=== PATIENT | female | born 1950 | race Hispanic/Latino ===

== ENCOUNTER → 2017-12-08 | Outpatient (CLI) | payer OTHER, MEDICARE ==
[~2017-12-08] MED LIST: ASPI-555 PO; ATOR20TA65 PO; LISI-617 PO; METF500T6 PO; MILK THISTLE; SPIR50TA3 PO
== END | disposition home or self-care (01) ==
LOC: RAH 10:19
PROVIDERS: ATTEND Internal Medicine Gastroenterology
DX: K70.31 Alcoholic cirrhosis of liver with ascites (principal); K80.20 Calculus of gallbladder without cholecystitis without obstruction; R16.1 Splenomegaly, not elsewhere classified
CPT/HCPCS: 76700

== ENCOUNTER → 2019-03-24 | Outpatient (CLI) | payer MEDICARE, OTHER ==
[~2019-03-24] VITALS: Ht 121.9 cm; Wt 56.2 kg
[~2019-03-24] MED LIST changes: +METF-444 PO; -METF500T6 PO; +REGADENOSON 0.4 MG/5 ML PF SYG IVP SCH; -SPIR50TA3 PO; +SPIR50TA5 PO
== END | disposition home or self-care (01) ==
LOC: SHCH 08:45
PROVIDERS: ATTEND Internal Medicine Cardiovascular Disease
DX: R06.00 Dyspnea, unspecified (principal)
CPT/HCPCS: 78452; 93017; 96374; A9500 ×2; J2785

== ENCOUNTER 2019-04-28 16:23 | Observation (INO) | payer MEDICARE, OTHER ==
[~2019-04-28] VITALS: Ht 152.4 cm; Wt 59.8 kg
[~2019-04-28 16:23] MED LIST changes: -APIX5TAB PO; -FAMO20TA8 PO; -FERR325T22 PO; -FURO20TA4 PO; -METF-446 PO; -MIRT15TA6 PO
[2019-04-28 17:22] LABS: BASOPHILS % (AUTO) 0.6 % (0.0-5.0); EOSINOPHILS % (AUTO) 0.1 % (0.0-8.0); HEMATOCRIT 35.7 % (36-48); LYMPHOCYTES % (AUTO) 23.2 % (21.0-51.0); MEAN CORPUSCULAR HEMOGLOBIN 32.1 pg (27.0-33.0); MEAN CORPUSCULAR VOLUME 97.4 fL (79-99); MONOCYTES % (AUTO) 5.6 % (3.0-13.0); NEUTROPHILS % (AUTO) 70.5 % (40.0-77.0); NUCLEATED RED BLOOD CELLS 0.1 % (0.0-0.19); PLATELET COUNT (AUTO) 158 K/uL (130-400); RED BLOOD CELL COUNT(AUTO) 3.66 MIL/uL (4.00-5.50); RED CELL DISTRIBUTION WIDTH 21.9 % (11.0-15.5); WHITE BLOOD COUNT (AUTO) 6.7 K/uL (4.8-10.8)
[2019-04-28 17:42] LABS: INR 1.49 (0.85-1.15); PARTIAL THROMBOPLASTIN TIME 36.2 SEC (26.3-35.5); PROTHROMBIN TIME 15.5 SEC (9.6-11.6)
[2019-04-28 18:08] LABS: CREATININE 0.9 mg/dL (0.5-1.5); POTASSIUM 4.3 mmol/L (3.5-5.1)
[2019-04-28 18:13] LABS: BILIRUBIN,TOTAL 2.6 mg/dL (0.2-1.0); TOTAL PROTEIN, SERUM 7.2 g/dL (6.0-8.3)
[2019-04-28] MEDS ORDERED: LABETALOL HCL 5 MG/ML 20ML VIAL IV PRN (18:45)
[2019-04-28] MEDS ORDERED: HYDRALAZINE HCL 20 MG/ML VIAL IV PRN (18:45)
[2019-04-28] MEDS ORDERED: ONDANSETRON HCL 4 MG/2 ML VIAL IVP PRN (18:45)
[2019-04-28 19:56] VITALS: BP 150/88
--- NOTE | 2019-04-28 20:00 | NUR ---
ADDENDUM TO SKIN ASSESSMENT BRUISING TO LEFT FOREHEAD AREA,NO OPEN WOUND ,NO SWELLING , PER PT SUSTAINED FROM BOTTLE FALLING TO HER FOREHEAD WHILE TRYING TO TAKE BOTTLE OUT OF CABINET. BRUISED AREA RIGHT UPPER ARM ,OCCUPYING ANTERIOR LOWER 1/2 OF UPPER ARM WITH NO SWELLING AND NO OPEN WOUND. PER PT , HAPPENED POST BLOOD DRAW ,A WEEK AGO AT THE OTHER HOSPITAL. Addendum: 04/29/19 at 0034 by ANUJ BROWER RN RN Amended: Links added.
[2019-04-28] MEDS: IPRATROPIUM/ALBUTEROL SULFATE 3 ML SOLUTION IH PRN (21:47)
[2019-04-28 23:10] VITALS: BP 105/65
[2019-04-28] MEDS ORDERED: FERR325T22 PO ×2 (23:12)
[2019-04-28] MEDS ORDERED: FURO20TA4 PO ×2 (23:12)
[2019-04-28] MEDS ORDERED: METF-446 PO ×2 (23:12)
[2019-04-28] MEDS ORDERED: FAMO20TA8 PO ×2 (23:12)
[2019-04-28] MEDS ORDERED: MIRT15TA6 PO ×2 (23:12)
[2019-04-28] MEDS ORDERED: APIX5TAB PO ×2 (23:12)
[2019-04-29] VITALS (12 sets, daily range): BP systolic 92–152; BP diastolic 54–87
[2019-04-29] MEDS: IPRATROPIUM/ALBUTEROL SULFATE 3 ML SOLUTION IH PRN ×2 (06:21→18:38)
--- NOTE | 2019-04-29 11:51 | NUR ---
PT PENDING PARACENTESIS CONSENT OBTAINED, THIS SILVER RECOVERY OPERATOR CALL TO CHECKING WHEN PT WILL BE GOING DOWN FOR PARACENTESIS, WAS GIVEN DR. TAFOYA'S #[id number], DR. TAFOYA SAY TO CALL DR. COLLEEN BARNES #[id number], DR. BARNES TO CALL LOTTIE TAFOYA CALLED BACK AND SAID TO CALL RADIOLOGY NURSE TO ARRANGE AND COMMUNICATE BACK TO HIM, TECHNICAL DATA ANALYST NOTIFIED.
--- NOTE | 2019-04-29 13:10 | NUR ---
PT UPDATE PT IS GONE FOR PARACENTESIS, NURSING WILL CONTINUE TO FOLLOW UP.
--- NOTE | 2019-04-29 14:00 | NUR ---
U/S GD PARACENTESIS PROCEDURE PERFORMED BY DR TAFOYA. PUNCTURE SITE RIGHT UPPER QUADRANT OF ABDOMEN AND PATIENT TOLERATED PROCEDURE WELL. TOTAL REMOVED 4.2 LITERS OF CLOUDY YELLOW FLUID. ALBUMIN 25% 50 GRAMS IV ORDERED SPECIMEN SENT TO LAB. END OF PROCEDURE AT 1430. CATHETER REMOVED AND DRESSING APPLIED. NO BLEEDING NOTED. . REPORT GIVEN TO PHAM WINN RN AND PATIENT TRANSPORTED TO [facility] VIA W/C, STABLE, AAO X3 WITH NO C/O PAIN.
[2019-04-29] MEDS ORDERED: ALBUMIN (HUMAN) 25% 100 ML IV ONE (14:30)
[2019-04-29 16:16] LABS: ALBUMIN,BODY FLUID < 0.6 g/dL
[2019-04-29 16:28] LABS: APPEARANCE BODY FLUID CLOUDY (CLEAR); COLOR,BODY FLUID BROWN (LT YELLOW); SPECIMENTYPE,BODY FLUID ASCITES FLUID; TOTAL VOLUME,BODY FLUID 4200 mL
--- NOTE | 2019-04-29 16:44 | NUR ---
INITIAL: Met with pt/family this afternoon to discuss dcp. Prior to admission pt was living w spouse and son Abdon. Pt is independent w ambulation and ADLs. She owns a rollator if needed. Per pt she feels safe and comfortable to return home at [place]. Will continue to follow and wait for Md recommendations. Addendum: 04/29/19 at 1646 by KATHE STEARNS CM Amended: Links added.
[2019-04-29 17:26] LABS: BODY FLUID RBC 146 /cu. mm.; BODY FLUID WBC 36 /cu. mm.
[2019-04-29 17:30] LABS: BF LYMPHOCYTE 31 %; BF MESOTHELIAL 1 %; BF MONOCYTE 37 %; BF OTHER CELLS 1
[2019-04-29] MEDS ORDERED: MIRTAZAPINE 15 MG TABLET PO SCH (21:00)
[2019-04-29] MEDS ORDERED: FUROSEMIDE 10 MG/1 ML SOLN UDC 10 MG/ML UDCUP PO SCH (21:00)
[2019-04-29] MEDS: FAMOTIDINE 20MG TAB 20 MG TAB PO SCH (21:22)
[2019-04-29] MEDS: FUROSEMIDE 20 MG TABLET PO SCH (21:23)
[2019-04-30 03:15] VITALS: BP 96/43
[2019-04-30] MEDS: IPRATROPIUM/ALBUTEROL SULFATE 3 ML SOLUTION IH PRN (06:20)
[2019-04-30 06:30] LABS: MEAN CORPUSCULAR HEMOGLOBIN 32.4 pg (27.0-33.0); MEAN CORPUSCULAR HGB CONC 33.3 g/dL (32.0-36.0); MEAN CORPUSCULAR VOLUME 97.3 fL (79-99); NUCLEATED RED BLOOD CELLS 0.3 % (0.0-0.19); PLATELET COUNT (AUTO) 88 K/uL (130-400); RED BLOOD CELL COUNT(AUTO) 2.67 MIL/uL (4.00-5.50); RED CELL DISTRIBUTION WIDTH 22.2 % (11.0-15.5); WHITE BLOOD COUNT (AUTO) 2.6 K/uL (4.8-10.8)
[2019-04-30 06:39] LABS: CREATININE 0.6 mg/dL (0.5-1.5); POTASSIUM 3.3 mmol/L (3.5-5.1)
[2019-04-30 08:00] VITALS: BP 100/56
[2019-04-30 08:59] LABS: BASOPHILS % (MANUAL) 2 % (0-2); LYMPHOCYTES % (MANUAL) 31 % (22-44); MAN.DIFF COMMENT-IMPRESSION MANUAL DIFFERENTIAL; MONOCYTES % (MANUAL) 9 % (2-9); PLATELET MORPHOLOGY COMMENT DECREASED; SEGMENTED NEUTROPHILS % 58 % (40-70)
[2019-04-30] MEDS ORDERED: LACTULOSE 20 GM/30 ML UDCUP PO SCH (09:00)
[2019-04-30] MEDS ORDERED: FERROUS SULFATE 325 MG TABLET.DR PO SCH (09:00)
[2019-04-30] MEDS ORDERED: LISINOPRIL 5 MG TABLET PO SCH (09:00)
[2019-04-30] MEDS ORDERED: SPIRONOLACTONE 25 MG TAB PO SCH (09:00)
[2019-04-30] MEDS: FUROSEMIDE 20 MG TABLET PO SCH (09:19)
[2019-04-30] MEDS: FAMOTIDINE 20MG TAB 20 MG TAB PO SCH (09:19)
[2019-04-30 12:00] VITALS: BP 116/73
--- NOTE | 2019-04-30 13:23 | NUR ---
Pt D/C Update 1. PT DISCHARGE TO HOME 2. PT TO CONTINUE WITH CURRENT HOME MEDS DISCUSSED BY THE DOCTOR 3. PT TO FOLLOW DISCHARGE APPOINTMENT WITH PRIMARY CARE DOCTOR 4. PT TO LIMIT FLUID INTAKE TO 1.5L PER DAY AND FOLLOW DIETARY RECOMMENDATION 5. PT TO CONSULT PRIMARY CARE PROVIDER, COME TO THE EMERGENCY ROOM OR CALL 911 WHEN PT FEELS SHORT OF BREATH. 6. PT IV TAKEN OUT COMPLETELY, NO COMPLICATION NOTED.
[2019-04-30] MEDS ORDERED: APIXABAN 5 MG TABLET PO SCH (21:00)
== END 2019-04-30 13:49 | disposition home or self-care (01) ==
LOC: EDH 16:23 → EDHIP 18:29 → 3AH 19:41
PROVIDERS: ADMIT Internal Medicine Critical Care Medicine; ATTEND Internal Medicine Critical Care Medicine
DX: K70.31 Alcoholic cirrhosis of liver with ascites (principal); E11.22 Type 2 diabetes mellitus with diabetic chronic kidney disease; I13.0 Hypertensive heart and chronic kidney disease with heart failure and stage 1 through stage 4 chronic kidney disease, or unspecified chronic kidney disease; I50.9 Heart failure, unspecified; N18.3 Chronic kidney disease, stage 3 (moderate); I82.402 Acute embolism and thrombosis of unspecified deep veins of left lower extremity; K76.6 Portal hypertension; Z79.01 Long term (current) use of anticoagulants; Z79.899 Other long term (current) drug therapy
CPT/HCPCS: 36415 ×2; 49083; 71045; 80048; 80053; 82042; 82140; 82948 ×6; 83880; 84484; 85025 ×2; 85610; 85730; 87071; 87205; 88108; 88305; 89051; 93005; 94640 ×4; 94664; 96365; 99284; A4215; G0378 ×43; P9046

== ENCOUNTER → 2019-04-28 | Outpatient (CLI) | payer MEDICARE, OTHER ==
[~2019-04-28] MED LIST changes: +APIX5TAB PO; +FAMO20TA8 PO; +FERR325T22 PO; +FURO20TA4 PO; +METF-446 PO; +MIRT15TA6 PO; -REGADENOSON 0.4 MG/5 ML PF SYG IVP SCH
== END | disposition home or self-care (01) ==
LOC: SHCH 10:52
PROVIDERS: ATTEND Internal Medicine Cardiovascular Disease
DX: I08.0 Rheumatic disorders of both mitral and aortic valves (principal); I10 Essential (primary) hypertension
CPT/HCPCS: 93306

== ENCOUNTER 2019-05-05 12:55 | Emergency (ER) | payer OTHER ==
[~2019-05-05 12:55] MED LIST changes: +APIX5TAB PO; -ASPI-555 PO; -ATOR20TA65 PO; +FAMO20TA8 PO; +FERR325T22 PO; +FURO20TA4 PO; -METF-444 PO; +METF-446 PO; -MILK THISTLE; +MIRT15TA6 PO; -SPIR50TA5 PO
[2019-05-05 13:55] LABS: BASOPHILS % (AUTO) 0.8 % (0.0-5.0); EOSINOPHILS % (AUTO) 1.4 % (0.0-8.0); HEMATOCRIT 27.9 % (36-48); LYMPHOCYTES % (AUTO) 29.1 % (21.0-51.0); MEAN CORPUSCULAR HEMOGLOBIN 32.3 pg (27.0-33.0); MEAN CORPUSCULAR HGB CONC 33.4 g/dL (32.0-36.0); MEAN CORPUSCULAR VOLUME 96.7 fL (79-99); MONOCYTES % (AUTO) 10.4 % (3.0-13.0); NEUTROPHILS % (AUTO) 58.3 % (40.0-77.0); NUCLEATED RED BLOOD CELLS 0.1 % (0.0-0.19); PLATELET COUNT (AUTO) 89 K/uL (130-400); RED BLOOD CELL COUNT(AUTO) 2.89 MIL/uL (4.00-5.50); RED CELL DISTRIBUTION WIDTH 21.7 % (11.0-15.5); WHITE BLOOD COUNT (AUTO) 3.4 K/uL (4.8-10.8)
[2019-05-05 14:08] LABS: INR 1.51 (0.85-1.15); PARTIAL THROMBOPLASTIN TIME 36.5 SEC (26.3-35.5); PROTHROMBIN TIME 15.7 SEC (9.6-11.6)
[2019-05-05 14:13] LABS: CREATININE 0.6 mg/dL (0.5-1.5); POTASSIUM 3.6 mmol/L (3.5-5.1)
[2019-05-05 14:18] LABS: ALBUMIN 1.6 g/dL (3.5-5.0); BILIRUBIN,TOTAL 1.9 mg/dL (0.2-1.0); TOTAL PROTEIN, SERUM 5.5 g/dL (6.0-8.3)
[2019-05-05] MEDS ORDERED: ALBUMIN (HUMAN) 25% 100 ML IV ONE (15:10)
[2019-05-05] MEDS ORDERED: FUROSEMIDE 10 MG/ML 4ML VIAL ONE (15:10)
[2019-05-11] MEDS ORDERED: FURO20TA4 PO (07:11)
[2019-05-11] MEDS ORDERED: SPIR50TA5 PO (07:11)
== END 2019-05-05 16:30 | disposition home or self-care (01) ==
LOC: EDH 12:55
DX: K74.60 Unspecified cirrhosis of liver (principal); R18.8 Other ascites; I11.0 Hypertensive heart disease with heart failure; I50.9 Heart failure, unspecified; E11.9 Type 2 diabetes mellitus without complications
CPT/HCPCS: 36415; 71045; 80053; 82550; 83880; 84484; 85025; 85610; 85730; 93005; 96365; 96375; 99285; J1940; P9046

== ENCOUNTER 2019-05-11 03:45 | Observation (INO) | payer OTHER | END 2019-05-12 12:56 | disposition home or self-care (01) | LOC: EDH 03:45 → EDHIP 04:41 → 2AH 05:51 ==

== ENCOUNTER 2019-05-15 03:30 | Observation (INO) | payer OTHER ==
[2019-05-15] VITALS (10 sets, daily range): BP systolic 90–128; BP diastolic 55–74
[~2019-05-15] VITALS: Ht 147.3 cm; Wt 64.1 kg
[~2019-05-15 03:30] MED LIST changes: -METF-446 PO; +SPIR50TA5 PO
[2019-05-15 04:08] LABS: BASOPHILS % (AUTO) 1.4 % (0.0-5.0); EOSINOPHILS % (AUTO) 6.4 % (0.0-8.0); HEMATOCRIT 28.3 % (36-48); LYMPHOCYTES % (AUTO) 32.6 % (21.0-51.0); MEAN CORPUSCULAR HEMOGLOBIN 32.8 pg (27.0-33.0); MEAN CORPUSCULAR HGB CONC 33.2 g/dL (32.0-36.0); MEAN CORPUSCULAR VOLUME 98.7 fL (79-99); MONOCYTES % (AUTO) 10.1 % (3.0-13.0); NEUTROPHILS % (AUTO) 49.5 % (40.0-77.0); NUCLEATED RED BLOOD CELLS 0.1 % (0.0-0.19); PLATELET COUNT (AUTO) 125 K/uL (130-400); RED BLOOD CELL COUNT(AUTO) 2.87 MIL/uL (4.00-5.50); RED CELL DISTRIBUTION WIDTH 22.3 % (11.0-15.5); WHITE BLOOD COUNT (AUTO) 4.1 K/uL (4.8-10.8)
[2019-05-15 04:18] LABS: CREATININE 0.5 mg/dL (0.5-1.5); POTASSIUM 4.2 mmol/L (3.5-5.1)
[2019-05-15 04:20] LABS: INR 1.35 (0.85-1.15); PARTIAL THROMBOPLASTIN TIME 32.1 SEC (26.3-35.5); PROTHROMBIN TIME 14.1 SEC (9.6-11.6)
[2019-05-15] MEDS ORDERED: METHYLPREDNISOLONE SOD SUCC 40MG/ML 1ML ONE (04:22)
[2019-05-15 04:27] LABS: ALBUMIN 1.8 g/dL (3.5-5.0); BILIRUBIN,TOTAL 1.5 mg/dL (0.2-1.0); TOTAL PROTEIN, SERUM 6.1 g/dL (6.0-8.3)
[2019-05-15] MEDS ORDERED: IPRATROPIUM/ALBUTEROL SULFATE 3 ML SOLUTION IH ONE (04:33)
[2019-05-15 04:36] LABS: B-TYPE NATRIURETIC PEPTIDE 76 pg/mL (0-100)
[2019-05-15] MEDS ORDERED: MORPHINE SULFATE 2 MG/ML 1ML SYG IVP PRN (06:30)
[2019-05-15] MEDS ORDERED: ACETAMINOPHEN 325 MG TAB PO PRN (06:30)
[2019-05-15] MEDS: INSULIN R PO SS1 SQ SCH ×4 (07:30→21:00)
--- NOTE | 2019-05-15 08:35 | NUR ---
U/S GD PARACENTESIS PROCEDURE PERFORMED BY DR CABALLERO. PUNCTURE SITE RIGHT UPPER QUADRANT OF ABDOMEN. PATIENT TOLERATED PROCEDURE WELL. TOTAL REMOVED 3.8 LITERS OF CLOUDY YELLOW ASCITES FLUID. END OF PROCEDURE AT 0855. CATHETER REMOVED AND DRESSING APPLIED. NO BLEEDING NOTED. REPORT CALLED TO SVEN JOLLEY. PATIENT TRANSPORTED BACK TO ROOM 328 VIA W/C, AT 0915, STABLE, AAO X3 WITH NO C/O PAIN.
[2019-05-15] MEDS ORDERED: ALBUMIN (HUMAN) 25% 100 ML IV SCH (09:00)
--- NOTE | 2019-05-15 09:30 | NUR ---
PT BACK FROM . I.R. PROCEDURE FOR A PARACENTESIS DRSG TO HER RT SIDE SM GAUZE WITH A 0- SANJEEV DRSG DRY AND CLEAN. PT . NOTED NO SOB . , DENIES ANY PAIN HOB . RESUME DIET. AND POSTOP V/S . WILL BE MONITOR ORD , FALL RISK REVIEW AND CALL LIGHT IN [facility].
[2019-05-15 09:41] LABS: SPECIMENTYPE,BODY FLUID ASCITES
[2019-05-15 09:42] LABS: APPEARANCE BODY FLUID CLEAR (CLEAR); COLOR,BODY FLUID YELLOW (LT YELLOW); TOTAL VOLUME,BODY FLUID 3800 mL
[2019-05-15 09:51] LABS: BODY FLUID RBC 938 /cu. mm.; BODY FLUID WBC 94 /cu. mm.
[2019-05-15 09:55] LABS: BF LYMPHOCYTE 30 %; BF MESOTHELIAL 17 %; BF MONOCYTE 8 %
[2019-05-15] MEDS ORDERED: POTASSIUM CHLORIDE 10% ELIXIR 20 MEQ/15 ML UDCUP PO PRN (10:15)
[2019-05-15] MEDS ORDERED: POTASSIUM CHLORIDE 20 MEQ ERTAB PO PRN (10:15)
[2019-05-15] MEDS ORDERED: LIDOCAINE HCL-MPF 1% 2ML VIAL IV PRN (10:15)
[2019-05-15] MEDS ORDERED: POTASSIUM CHLORIDE 20MEQ/100ML 100 ML IV PRN ×2 (10:15)
[2019-05-15] MEDS ORDERED: MAGNESIUM 2GM PREMIX 50ML 50 ML IV PRN (10:15)
[2019-05-15] MEDS: PANTOPRAZOLE SODIUM 40 MG TABLET.DR PO SCH (11:27)
[2019-05-15] MEDS: INSULIN HUMULIN R 100 UNIT/ML 3ML SQ SCH ×3 (11:30→21:00)
--- NOTE | 2019-05-15 12:25 | NUR ---
RESUME HOME MEDS PER Semaj DAWN
--- NOTE | 2019-05-15 14:02 | NUR ---
INITIAL AT BEDSIDE, NURSES THERE DOING INITIAL ASSESSMENT. PATIENT JUST DISCHARGED A FEW DAYS AGO, RETURNED FOR [place]CITES, NEEDING ANOTHER PARACENTESIS. PT STATES THAT HER MD WAS GOING TO SEND HER 'SOMEWHERE TO GET THE TAPS AND I'LL STAY THERE' ? SPOKE TO NEREYDA SUAREZ WHO STATED PLEASE HELP DR. PANTOJA, PMD TO SET SCHEDULED RECURRING PARA'S, CONTACT THEIR OFFICE CALL MADE TO BG MORRIS AND EMAILED ORDER FOR SCHEDULED PARACENTESIS
[2019-05-15] MEDS ORDERED: MIRTAZAPINE 15 MG TABLET PO SCH (21:00)
[2019-05-15] MEDS: SPIRONOLACTONE 25 MG TAB PO SCH (22:30)
[2019-05-15] MEDS: FAMOTIDINE 20MG TAB 20 MG TAB PO SCH (22:30)
[2019-05-15] MEDS: APIXABAN 5 MG TABLET PO SCH (22:31)
--- NOTE | 2019-05-15 23:21 | NUR ---
PATIENT REQUESTING OF BREATHING TREATMENT. SHE SAID SHE WAS HAVING SHORTNESS OF BREATHING UPON EXERTION. VITALS SIGNS TAKEN BP 120/70 RR 17 O2 SAT TO ROOM AIR 96% RI 85. HOOKED PT FOR NOW TO O2 AT 2 LPM VIA NASAL CANNULA. MAINTAINED ON GOVEA'S POSITION. NOTED LOWER EXTREMITIES ARE SWOLLEN, DIURETICS SCHEDULED GIVEN. INFORMED PATIENT AND JORGE L HAWKINS THAT I GAVE DIURETICS SCHEDULED SO SIDE EFFECT IS PT WILL URINATE. OFFERED PATIENT BEDPAN OR COMMODE JUST IN CASE SHE WILL HAVING A HARD TIME TO AMBULATE, PT ACKNOWLEDGED AND ACCEPTED IT. PAGED DYLAN MEHTA.PENDING FOR CALL BACK
--- NOTE | 2019-05-15 23:31 | NUR ---
CALL BACK DYLAN MEHTA CALL BACK INFORMED ABOUT PATIENT. SHE ORDERED CXR X 2 VIEWS IN THE MORNING. AND BREATHING TREATMENT DUONEB Q 6 HOURS. AND O2 AT 2 LPM VIA NC
[2019-05-16] VITALS: BP 116/78
[2019-05-16] MEDS: IPRATROPIUM/ALBUTEROL SULFATE 3 ML SOLUTION IH SCH ×3 (00:32→11:05)
[2019-05-16 04:00] VITALS: BP 99/55
[2019-05-16 05:03] LABS: CREATININE 0.6 mg/dL (0.5-1.5); MAGNESIUM 1.7 mg/dL (1.80-2.40); PHOSPHORUS 2.4 mg/dL (2.5-4.9); POTASSIUM 4.3 mmol/L (3.5-5.1)
[2019-05-16 07:00] VITALS: BP 104/64
[2019-05-16] MEDS: INSULIN R PO SS1 SQ SCH ×3 (07:30→16:30)
[2019-05-16] MEDS: INSULIN HUMULIN R 100 UNIT/ML 3ML SQ SCH ×3 (07:30→16:30)
[2019-05-16] MEDS ORDERED: FERROUS SULFATE 325 MG TABLET.DR PO SCH (09:00)
[2019-05-16] MEDS ORDERED: LISINOPRIL 5 MG TABLET PO SCH (09:00)
[2019-05-16] MEDS ORDERED: FUROSEMIDE 10 MG/ML 4ML VIAL IV SCH (09:00)
[2019-05-16] MEDS: PANTOPRAZOLE SODIUM 40 MG TABLET.DR PO SCH (09:50)
[2019-05-16] MEDS: SPIRONOLACTONE 25 MG TAB PO SCH (09:50)
[2019-05-16] MEDS: FAMOTIDINE 20MG TAB 20 MG TAB PO SCH (09:50)
[2019-05-16] MEDS: APIXABAN 5 MG TABLET PO SCH (09:51)
[2019-05-16 11:00] VITALS: BP 111/44
--- NOTE | 2019-05-16 15:03 | NUR ---
RD NOTIFICATION Primary Diagnosis: Ascites. Hx: CKD STG III, CHF, HTN, DM2, Liver Cirrhosis. BMI is 29.5; classified as overweight. Current diet: Regular, Na2gm, Fluid Restriction 1000mLs/d. PO intake 100%. LBM: 05/15. Meds: Duoneb, Remeron, Eliquis, Pepcid, Humulin R, Aldactone, Protonix. Labs: Phos 2.4, Mg 1.7, Ammonia 34, Bilirubin 1.5, Alk phosphatase 188, Alb 1.8, BG 149. Pt was previously admitted on 05/11 for volume overload. S/P paracentesis on 05/15. Pt has reoccurring ascites. Pt states she has good appetite and no difficulty chewing or swallowing. Skin: 2+ pitting edema, skin intact. Pts son states he has a hard time getting her to understand she needs to stay away from high sodium food and excessive fluid intake. Son says he will keep a close eye on pt intake. RD recommends to continue current diet. RD provided pt and pt son Low Sodium Nutrition Therapy and Fluid Restriction Nutrition Therapy. Son was eager to ask questions, RD answered and son verbalized understanding. RD provided diet handouts for pt and family to take home and use as reference. RD encouraged pt to reach out if he had any other questions or concerns. RD will continue to monitor and follow up as needed. Please notify RD if any other nutritional concerns arise, Thank you. Addendum: 05/16/19 at [address] Amended: Links added.
--- NOTE | 2019-05-16 15:05 | NUR ---
DIET EDUCATION PELON provided pt and pt son Low Sodium Nutrition Therapy and Fluid Restriction Nutrition Therapy. Son was eager to ask questions, RD answered and son verbalized understanding. PELON provided diet handouts for pt and family to take home and use as reference. PELON encouraged pt to reach out if he had any other questions or concerns. Addendum: 05/16/19 at [address] Amended: Links added.
--- NOTE | 2019-05-16 17:28 | NUR ---
DISCHARGE INSTRUCTIONS GIVEN. ALL QUESTIONS ANSWERED. IV DISCONTINUED WITH INNER CANNULA INTACT. INSTRUCTED PATIENT TO FOLLOW UP WITH PCP REGARDING CONTINUITIY OF CARE. SON IN ROOM WITH PATIENT. PATIENT WHEELED DOWNSTAIRS TO PRIVATE CAR. VOICES NO COMPLAINTS.
== END 2019-05-16 19:00 | disposition home or self-care (01) ==
LOC: EDH 03:30 → EDHIP 05:55 → 3DH 06:07 → 3BH 20:40
PROVIDERS: ADMIT Internal Medicine Pulmonary Disease; ATTEND Internal Medicine Pulmonary Disease
DX: R18.8 Other ascites (principal); I13.0 Hypertensive heart and chronic kidney disease with heart failure and stage 1 through stage 4 chronic kidney disease, or unspecified chronic kidney disease; I50.9 Heart failure, unspecified; N18.3 Chronic kidney disease, stage 3 (moderate); E11.22 Type 2 diabetes mellitus with diabetic chronic kidney disease; R06.02 Shortness of breath; I82.402 Acute embolism and thrombosis of unspecified deep veins of left lower extremity; K74.60 Unspecified cirrhosis of liver; J45.909 Unspecified asthma, uncomplicated; Z79.01 Long term (current) use of anticoagulants; Z86.718 Personal history of other venous thrombosis and embolism; Z79.899 Other long term (current) drug therapy
CPT/HCPCS: 36415 ×2; 49083; 71045; 71046; 80048; 80053; 82140 ×2; 82948 ×4; 83735; 83880; 84100; 84484; 85025; 85610; 85730; 87071; 87205; 89051; 93005; 93970; 94640 ×4; 94664; 96365; 96366; 96372; 96375; 96376; 99284; A4215; G0378 ×34; J1815; J1940; J2920; J3475; P9046

== ENCOUNTER 2019-05-29 01:18 | Inpatient (IN) | payer OTHER ==
[~2019-05-29] VITALS: Ht 152.4 cm; Wt 63.7 kg
[2019-05-29] MEDS ORDERED: IPRATROPIUM/ALBUTEROL SULFATE 3 ML SOLUTION IH ONE ×3 (01:53→04:24)
[2019-05-29 02:01] LABS: BASOPHILS % (AUTO) 0.9 % (0.0-5.0); EOSINOPHILS % (AUTO) 9.8 % (0.0-8.0); HEMATOCRIT 27.5 % (36-48); LYMPHOCYTES % (AUTO) 27.5 % (21.0-51.0); MEAN CORPUSCULAR HEMOGLOBIN 33.3 pg (27.0-33.0); MEAN CORPUSCULAR HGB CONC 33.7 g/dL (32.0-36.0); MONOCYTES % (AUTO) 7.4 % (3.0-13.0); NEUTROPHILS % (AUTO) 54.4 % (40.0-77.0); NUCLEATED RED BLOOD CELLS 0.1 % (0.0-0.19); PLATELET COUNT (AUTO) 116 K/uL (130-400); RED BLOOD CELL COUNT(AUTO) 2.77 MIL/uL (4.00-5.50); RED CELL DISTRIBUTION WIDTH 19.5 % (11.0-15.5); WHITE BLOOD COUNT (AUTO) 4.8 K/uL (4.8-10.8)
[2019-05-29 02:16] LABS: INR 1.34 (0.85-1.15); PARTIAL THROMBOPLASTIN TIME 31.5 SEC (26.3-35.5)
[2019-05-29 02:20] LABS: BILIRUBIN,TOTAL 1.4 mg/dL (0.2-1.0); CREATININE 0.7 mg/dL (0.5-1.5); POTASSIUM 3.2 mmol/L (3.5-5.1); TOTAL PROTEIN, SERUM 6.3 g/dL (6.0-8.3)
[2019-05-29] MEDS ORDERED: POTASSIUM BICARB/CIT AC 25 MEQ TABLET.EFF ONE (02:37)
[2019-05-29] MEDS ORDERED: METHYLPREDNISOLONE SOD SUCC 125MG/2ML VIAL ONE (02:37)
[2019-05-29] MEDS ORDERED: LEVOFLOXACIN 750 MG/D5W 150 ML 0 ML ONE (05:52)
[2019-05-29] MEDS ORDERED: LEVOFLOXACIN 500 MG/D5W 100 ML 100 ML ONE (05:53)
[2019-05-29] MEDS ORDERED: ACETAMINOPHEN 325 MG TAB PO PRN (08:00)
[2019-05-29] MEDS ORDERED: LACTULOSE 20 GM/30 ML UDCUP PO PRN (08:00)
[2019-05-29] MEDS ORDERED: ONDANSETRON HCL 4 MG/2 ML VIAL IVP PRN (08:00)
--- NOTE | 2019-05-29 08:50 | NUR ---
REPORT RECEIVED FROM SVEN SCHMITZ (ED). PATIENT ADMITTED UNDER [facility]S SERVICES FOR ASTHMA EXACERBATION. PATIENT WITH C/O SOB, PERSISTENT COUGH AND CONGESTION FOR 2 WEEKS. NO CONSULTS. PATIENT STABLE AT THIS TIME.
[2019-05-29 09:05] VITALS: BP 129/109
[2019-05-29] MEDS: IPRATROPIUM/ALBUTEROL SULFATE 3 ML SOLUTION IH SCH ×4 (09:55→21:57)
[2019-05-29 12:00] VITALS: BP 117/82
[2019-05-29] MEDS: DOXYCYCLINE 100MG+NS 250ML 250 ML IV SCH ×2 (12:52→23:24)
[2019-05-29] MEDS: GUAIFENESIN-CODEINE 5 ML SYRUP PO PRN ×2 (12:56→23:31)
[2019-05-29] MEDS: METHYLPREDNISOLONE SOD SUCC 40MG/ML 1ML IVP SCH ×3 (12:56→23:23)
[2019-05-29 13:16] LABS: INR 1.41 (0.85-1.15); PROTHROMBIN TIME 14.7 SEC (9.6-11.6)
[2019-05-29 16:00] VITALS: BP 111/71
--- NOTE | 2019-05-29 16:01 | NUR ---
U/S GD PARACENTESIS PROCEDURE PERFORMED BY DR Bernarda WINKLER. PUNCTURE SITE RIGHT UPPER QUADRANT OF ABDOMEN AND PATIENT TOLERATED PROCEDURE WELL. TOTAL REMOVED 2.5 LITERS OF CLOUDY YELLOW FLUID. END OF PROCEDURE AT 1430. CATHETER REMOVED AND DRESSING APPLIED. NO BLEEDING NOTED. . REPORT GIVEN TO Manuela TSAI LVN AND PATIENT TRANSPORTED TO [facility] VIA W/C, STABLE, AAO X3 WITH NO C/O PAIN.
[2019-05-29] MEDS: BUDESONIDE 0.5 MG/2 ML INH IH SCH (18:56)
[2019-05-29 20:00] VITALS: BP 118/66
[2019-05-29] MEDS: LACTULOSE 20 GM/30 ML UDCUP PO SCH (23:23)
[2019-05-30] VITALS: BP 96/52
[2019-05-30] MEDS: IPRATROPIUM/ALBUTEROL SULFATE 3 ML SOLUTION IH SCH ×5 (01:11→18:29)
[2019-05-30 04:00] VITALS: BP 104/61
[2019-05-30 04:58] LABS: HEMATOCRIT 24.6 % (36-48); MEAN CORPUSCULAR HEMOGLOBIN 33.1 pg (27.0-33.0); MEAN CORPUSCULAR HGB CONC 33.5 g/dL (32.0-36.0); MEAN CORPUSCULAR VOLUME 98.8 fL (79-99); PLATELET COUNT (AUTO) 96 K/uL (130-400); RED BLOOD CELL COUNT(AUTO) 2.49 MIL/uL (4.00-5.50); RED CELL DISTRIBUTION WIDTH 19.8 % (11.0-15.5); WHITE BLOOD COUNT (AUTO) 5.6 K/uL (4.8-10.8)
[2019-05-30 05:07] LABS: CREATININE 0.7 mg/dL (0.5-1.5); POTASSIUM 4.1 mmol/L (3.5-5.1)
[2019-05-30 05:11] LABS: ALBUMIN 1.6 g/dL (3.5-5.0); BILIRUBIN,TOTAL 0.9 mg/dL (0.2-1.0); TOTAL PROTEIN, SERUM 5.4 g/dL (6.0-8.3)
[2019-05-30 05:13] LABS: LYMPHOCYTES % (MANUAL) 12 % (22-44); MONOCYTES % (MANUAL) 4 % (2-9); SEGMENTED NEUTROPHILS % 84 % (40-70)
[2019-05-30 05:14] LABS: MAN.DIFF COMMENT-IMPRESSION MANUAL DIFFERENTIAL; PLATELET MORPHOLOGY COMMENT SLIGHTLY DECREASED
[2019-05-30 08:00] VITALS: BP 110/57
[2019-05-30] MEDS: LACTULOSE 20 GM/30 ML UDCUP PO SCH ×2 (09:15→22:23)
[2019-05-30] MEDS: GUAIFENESIN-CODEINE 5 ML SYRUP PO PRN ×3 (09:15→22:22)
[2019-05-30] MEDS: METHYLPREDNISOLONE SOD SUCC 40MG/ML 1ML IVP SCH (09:15)
[2019-05-30] MEDS: BUDESONIDE 0.5 MG/2 ML INH IH SCH ×2 (10:17→18:29)
[2019-05-30 11:52] VITALS: BP 110/69
[2019-05-30] MEDS ORDERED: FAMOTIDINE/PF 20 MG/2 ML VIAL IV SCH (12:00)
[2019-05-30] MEDS ORDERED: LORATADINE 10 MG TABLET PO SCH (12:00)
--- NOTE | 2019-05-30 13:00 | NUR ---
DYSPHAGIA EVAL COMPLETED. -S/S OF ASPIRATION. RECOMMEND MECHANICAL SOFT/CHOPPED, THIN LIQUIDS; PILLS WHOLE WITH LIQUIDS. Addendum: 05/31/19 at 0846 by RADHA LAUREN, [facility] Amended: Links added.
[2019-05-30 16:00] VITALS: BP 99/61
--- NOTE | 2019-05-30 16:05 | NUR ---
INITIAL MET W PT ALONE, ON COOL MIST MASK, PT LIVES W /TWO SONS, WHO WILL PORIVDE TRANSPORT; PT STATES HAS ROLLING WALKER, NO BCS/SHOWER CHAIR, NO STAIRS IN HOME, PROVIDER SERVICES 26 HRS WEEK, DCP IS HOME PT STATES HAS OXYGEN BUT NO NEBULIZER.. WILL FOLLOW Addendum: 05/30/19 at 1726 by ADELE BARNES RN CM Amended: Links added. Addendum: 05/31/19 at 1052 by ADELE BARNES RN CM CORRECTION PT HAS NEBULIZER, DOES NOT HAVE OXYGEN
[2019-05-30] MEDS ORDERED: LORATADINE 10 MG TABLET ONE (16:38)
[2019-05-30] MEDS: DOXYCYCLINE 100MG+NS 250ML 250 ML IV SCH (16:42)
[2019-05-30 20:00] VITALS: BP 118/67
[2019-05-30] MEDS: PREDNISONE 20 MG TABLET PO SCH (22:23)
[2019-05-30] MEDS: FAMOTIDINE 20MG TAB 20 MG TAB PO SCH (22:23)
[2019-05-30] MEDS: APIXABAN 5 MG TABLET PO SCH (22:23)
[2019-05-30] MEDS: FUROSEMIDE 20 MG TABLET PO SCH (22:23)
[2019-05-30] MEDS: SPIRONOLACTONE 25 MG TAB PO SCH (22:23)
[2019-05-30] MEDS: MIRTAZAPINE 15 MG TABLET PO SCH (22:23)
[2019-05-30] MEDS: PROPRANOLOL HCL 20 MG TAB PO SCH (22:28)
[2019-05-31] VITALS: BP 126/66
[2019-05-31] MEDS: DOXYCYCLINE 100MG+NS 250ML 250 ML IV SCH ×3 (00:29→23:14)
[2019-05-31 04:00] VITALS: BP 113/68
[2019-05-31] MEDS: BUDESONIDE 0.5 MG/2 ML INH IH SCH (05:04)
[2019-05-31] MEDS: GUAIFENESIN-CODEINE 5 ML SYRUP PO PRN (05:25)
[2019-05-31 05:46] LABS: CREATININE 0.7 mg/dL (0.5-1.5); POTASSIUM 4.1 mmol/L (3.5-5.1)
[2019-05-31 06:03] LABS: HEMATOCRIT 25.4 % (36-48); MEAN CORPUSCULAR HEMOGLOBIN 32.9 pg (27.0-33.0); MEAN CORPUSCULAR HGB CONC 33.2 g/dL (32.0-36.0); MEAN CORPUSCULAR VOLUME 98.9 fL (79-99); PLATELET COUNT (AUTO) 109 K/uL (130-400); RED BLOOD CELL COUNT(AUTO) 2.56 MIL/uL (4.00-5.50); RED CELL DISTRIBUTION WIDTH 19.9 % (11.0-15.5); WHITE BLOOD COUNT (AUTO) 7.9 K/uL (4.8-10.8)
[2019-05-31 07:00] VITALS: BP 130/70
[2019-05-31] MEDS: PROPRANOLOL HCL 20 MG TAB PO SCH ×2 (09:00→23:13)
[2019-05-31] MEDS: LACTULOSE 20 GM/30 ML UDCUP PO SCH ×2 (10:18→23:14)
[2019-05-31] MEDS: FAMOTIDINE 20MG TAB 20 MG TAB PO SCH (10:18)
[2019-05-31] MEDS: APIXABAN 5 MG TABLET PO SCH ×2 (10:18→23:14)
[2019-05-31] MEDS: FUROSEMIDE 20 MG TABLET PO SCH ×2 (10:19→23:13)
[2019-05-31] MEDS: FERROUS SULFATE 325 MG TABLET.DR PO SCH (10:19)
[2019-05-31] MEDS: LORATADINE 10 MG TABLET PO SCH (10:19)
[2019-05-31] MEDS: SPIRONOLACTONE 25 MG TAB PO SCH ×2 (10:19→23:14)
[2019-05-31] MEDS: PREDNISONE 20 MG TABLET PO SCH ×2 (10:19→23:23)
--- NOTE | 2019-05-31 10:30 | NUR ---
NOTE NOTIFIED DYLAN MEHTA WITH [facility] THAT WE CALLED DR WATKINS OFFICE FOR CONSULT REGARDING VOCAL CORD DYSFUNCTION BUT HE IS OUT OF TOWN FOR A WEEK WITH FAMILY EMERGENCY AND THERE IS NO OTHER ENT TO COME SEE HER. SHE SAID SHE CAN GO SEE HIM OUTPATIENT.
[2019-05-31 11:00] VITALS: BP 142/72
[2019-05-31] MEDS: IPRATROPIUM/ALBUTEROL SULFATE 3 ML SOLUTION IH PRN ×3 (11:05→23:26)
--- NOTE | 2019-05-31 11:15 | NUR ---
FOLLOW UP COMPLETED. Pt TOLERATING CURRENT DIET OF MECHANICAL SOFT/CHOPPED, THIN LIQUIDS WITH NO OVERT S/S OF ASPIRATION. Addendum: 05/31/19 at 1116 by RADHA LAUREN, SPT ST Amended: Links added.
--- NOTE | 2019-05-31 12:10 | NUR ---
NOTE PATIENT WAS OUT OF BED TO GO TO THE BATHROOM AND HER O2 SATURATION AFTER SHE CAME BACK FROM BATHROOM AND BEING WITHOUT O2 FOR THIS TIME IS 98% ON ROOM AIR. SHE CONTINUES WITH DRY COUGH SHE HAS BEEN HAVING FOR 2 MONTHS.
--- NOTE | 2019-05-31 15:10 | NUR ---
RD NOTIFICATION PRIMARY DIAGNOSIS: ASTHMA EXACERBATION. HX: CIRRHOSIS. BMI IS 28.9; CLASSIFIED OVERWEIGHT. CURRENT DIET: HEART HEALTHY, MECHANICAL SOFT/CHOPPED, 6 SMALL MEALS, THIN LIQUIDS. PO INTAKE 75%. PT HAS GOOD APPETITE. NO FOOD ALLERGIES PER PT. PT STATED SHE HAS A PERSISTENT COUGH AND CHEST PAIN. PT CONTINUES TO EXPERIENCE PAIN WHEN SWALLOWING FOOD. PUBLIC HOUSING INTERVIEWER PREVIOUSLY RECOMMENDED TEXTURE MODIFICATIONS ON DIET ORDER. MEDS: PULMICORT, ZOFRAN, LACTULOSE, PEPCID, LORATADINE, DELTASONE, ROBITUSSIN, DUONEB, ELIQUIS, LASIX, PRINIVIL, REMERON, FERROUS SULFATE, ALDACTONE, INDERAL. LABS: AMMONIA 57, ALB 1.6, BNP 104. PT IS POSITIVE FOR ASCITES, S/P PARACENTESIS. RD RECOMMENDS TO CONTINUE CURRENT DIET. MONITOR PO INTAKE AND CONTINUE TO MONITOR TOLERANCE TO DIET AND PAIN WHEN SWALLOWING FOOD. RD WILL CONTINUE TO MONITOR AND FOLLOW UP NEEDED. PLEASE NOTIFY RD IF ANY OTHER NUTRITIONAL CONCERNS ARISE. THANK YOU. Addendum: 05/31/19 at [address] Amended: Links added.
[2019-05-31 16:00] VITALS: BP 119/70
--- NOTE | 2019-05-31 16:30 | NUR ---
NOTE SPOKE TO DR MIN CASTRO OVER THE TELEPHONE AND SHE WILL TAKE THE CONSULT. SHE WILL COME SEE THE PATIENT TOMORROW AT 1400. WILL INFORM [address] DAVIS ABOUT IT AND ASK ABOUT PATIENT HAVING A PARACENTESIS SINCE SHE WAS SCHEDULED TO HAVE ONE TOMORROW OUTPATIENT.
[2019-05-31] MEDS: LISINOPRIL 5 MG TABLET PO SCH (17:27)
[2019-05-31] MEDS ORDERED: RACEPINEPHRINE HCL 2.25% 0.5 ML NEB SOLN NEB PRN (18:00)
[2019-05-31 20:06] VITALS: BP 119/62
[2019-05-31] MEDS: PHARMACY COMMUNICATION MISC SCH (20:15)
[2019-05-31] MEDS: MIRTAZAPINE 15 MG TABLET PO SCH (23:13)
[2019-05-31] MEDS: PANTOPRAZOLE SODIUM 40 MG TABLET.DR PO SCH (23:13)
[2019-06-01] MEDS: PHARMACY COMMUNICATION MISC SCH ×6 (00:15→20:15)
[2019-06-01 00:17] VITALS: BP 113/69
[2019-06-01 03:35] VITALS: BP 106/59
[2019-06-01 04:47] LABS: HEMATOCRIT 26.7 % (36-48); MEAN CORPUSCULAR HEMOGLOBIN 33.4 pg (27.0-33.0); MEAN CORPUSCULAR HGB CONC 33.7 g/dL (32.0-36.0); MEAN CORPUSCULAR VOLUME 99.2 fL (79-99); PLATELET COUNT (AUTO) 103 K/uL (130-400); RED BLOOD CELL COUNT(AUTO) 2.69 MIL/uL (4.00-5.50); RED CELL DISTRIBUTION WIDTH 19.4 % (11.0-15.5); WHITE BLOOD COUNT (AUTO) 6.6 K/uL (4.8-10.8)
[2019-06-01 05:16] LABS: CREATININE 0.8 mg/dL (0.5-1.5); MAGNESIUM 1.6 mg/dL (1.80-2.40); POTASSIUM 3.8 mmol/L (3.5-5.1); THYROID STIMULATING HORMONE 0.71 uIU/mL (0.36-3.74)
[2019-06-01] MEDS: IPRATROPIUM/ALBUTEROL SULFATE 3 ML SOLUTION IH PRN ×4 (05:20→23:15)
[2019-06-01 05:36] LABS: INR 1.53 (0.85-1.15); PARTIAL THROMBOPLASTIN TIME 31.1 SEC (26.3-35.5); PROTHROMBIN TIME 15.9 SEC (9.6-11.6)
[2019-06-01] MEDS ORDERED: ALBUMIN (HUMAN) 25% 100 ML IV SCH (06:00)
[2019-06-01 07:30] VITALS: BP 95/57
[2019-06-01] MEDS: LISINOPRIL 5 MG TABLET PO SCH (09:00)
[2019-06-01] MEDS: PROPRANOLOL HCL 20 MG TAB PO SCH ×2 (09:00→21:29)
[2019-06-01 11:00] VITALS: BP 103/54
--- NOTE | 2019-06-01 13:00 | NUR ---
U/S GD PARACENTESIS PROCEDURE PERFORMED BY DR Bernarda WINKLER. PUNCTURE SITE RIGHT UPPER QUADRANT OF ABDOMEN AND PATIENT TOLERATED PROCEDURE WELL. TOTAL REMOVED 2 LITERS OF CLOUDY YELLOW FLUID. END OF PROCEDURE AT 1225. CATHETER REMOVED AND DRESSING APPLIED. NO BLEEDING NOTED. . REPORT GIVEN TO Wicho WATSON RN AND PATIENT TRANSPORTED TO [facility] VIA W/C, STABLE, AAO X3 WITH NO C/O PAIN. ALBUMIN 25% 25 GRAMS IV GIVEN BEFORE PARACENTESIS.
[2019-06-01 16:00] VITALS: BP 119/62
[2019-06-01] MEDS: PREDNISONE 20 MG TABLET PO SCH ×2 (16:22→21:21)
[2019-06-01] MEDS: FUROSEMIDE 20 MG TABLET PO SCH ×2 (16:22→21:22)
[2019-06-01] MEDS: APIXABAN 5 MG TABLET PO SCH ×2 (16:23→21:22)
[2019-06-01] MEDS: LORATADINE 10 MG TABLET PO SCH (16:24)
[2019-06-01] MEDS: FERROUS SULFATE 325 MG TABLET.DR PO SCH (16:24)
[2019-06-01] MEDS: SPIRONOLACTONE 25 MG TAB PO SCH ×2 (16:24→21:21)
[2019-06-01] MEDS: LACTULOSE 20 GM/30 ML UDCUP PO SCH ×2 (16:24→21:22)
[2019-06-01] MEDS: PANTOPRAZOLE SODIUM 40 MG TABLET.DR PO SCH ×2 (16:24→21:21)
[2019-06-01] MEDS: DOXYCYCLINE 100MG+NS 250ML 250 ML IV SCH (16:26)
[2019-06-01] MEDS: GUAIFENESIN-CODEINE 5 ML SYRUP PO PRN (16:43)
[2019-06-01 19:00] VITALS: BP 114/71
[2019-06-01] MEDS: MIRTAZAPINE 15 MG TABLET PO SCH (21:21)
[2019-06-02] VITALS: BP 126/55
[2019-06-02] MEDS: PHARMACY COMMUNICATION MISC SCH ×5 (00:15→16:15)
[2019-06-02] MEDS: DOXYCYCLINE 100MG+NS 250ML 250 ML IV SCH ×2 (03:04→12:25)
[2019-06-02 04:00] VITALS: BP 100/60
[2019-06-02 05:01] LABS: BASOPHILS % (AUTO) 0.6 % (0.0-5.0); EOSINOPHILS % (AUTO) 0.2 % (0.0-8.0); HEMATOCRIT 26.1 % (36-48); LYMPHOCYTES % (AUTO) 24.6 % (21.0-51.0); MEAN CORPUSCULAR HEMOGLOBIN 33.2 pg (27.0-33.0); MEAN CORPUSCULAR HGB CONC 33.7 g/dL (32.0-36.0); MEAN CORPUSCULAR VOLUME 98.6 fL (79-99); MONOCYTES % (AUTO) 8.7 % (3.0-13.0); NEUTROPHILS % (AUTO) 65.9 % (40.0-77.0); PLATELET COUNT (AUTO) 98 K/uL (130-400); RED BLOOD CELL COUNT(AUTO) 2.65 MIL/uL (4.00-5.50); RED CELL DISTRIBUTION WIDTH 19.2 % (11.0-15.5); WHITE BLOOD COUNT (AUTO) 5.3 K/uL (4.8-10.8)
[2019-06-02 05:14] LABS: CREATININE 0.8 mg/dL (0.5-1.5); POTASSIUM 4.1 mmol/L (3.5-5.1)
[2019-06-02] MEDS: IPRATROPIUM/ALBUTEROL SULFATE 3 ML SOLUTION IH PRN ×2 (06:46→13:16)
[2019-06-02 07:00] VITALS: BP 98/53
[2019-06-02] MEDS: LACTULOSE 20 GM/30 ML UDCUP PO SCH (08:55)
[2019-06-02] MEDS: LISINOPRIL 5 MG TABLET PO SCH (08:56)
[2019-06-02] MEDS: LORATADINE 10 MG TABLET PO SCH (08:56)
[2019-06-02] MEDS: FUROSEMIDE 20 MG TABLET PO SCH (08:56)
[2019-06-02] MEDS: PREDNISONE 20 MG TABLET PO SCH (08:56)
[2019-06-02] MEDS: FERROUS SULFATE 325 MG TABLET.DR PO SCH (08:56)
[2019-06-02] MEDS: PANTOPRAZOLE SODIUM 40 MG TABLET.DR PO SCH (08:56)
[2019-06-02] MEDS: APIXABAN 5 MG TABLET PO SCH (08:57)
[2019-06-02] MEDS: SPIRONOLACTONE 25 MG TAB PO SCH (08:57)
[2019-06-02] MEDS: PROPRANOLOL HCL 20 MG TAB PO SCH (08:57)
[2019-06-02 11:00] VITALS: BP 98/61
[2019-06-02] MEDS ORDERED: ALBU8.5H8 IH (12:09)
[2019-06-02] MEDS ORDERED: DOXY100C2 PO (12:09)
[2019-06-02] MEDS ORDERED: PRED20TA3 PO (12:09)
[2019-06-02] MEDS ORDERED: GUAFACSF5L PO (12:47)
--- NOTE | 2019-06-02 13:47 | NUR ---
VOICE EVALUATION COMPLETED. ENT CONSULT COMPLETED AND RECOMMENDATIONS FOR SPEECH THERAPY IN PLACE. 1. SPORTS MEDIA PROVIDED DETAILED HOME PROGRAM PROVIDED IN [place] VIA HANDOUT. ALL EXERCISES DEMONSTRATED AND EXPLAINED TO Pt AND SON. Pt REQUIRED ASSISTANCE SECONDARY TO POOR COORDINATION. SON VERBALIZED UNDERSTANDING. 2. SKILLED SPEECH THERAPY RECOMMENDED IN AN OUTPATIENT SETTING 2-3XWEEK. 3. ENT FINDINGS AFTER LARYNGOSCOPY: LEFT ATROPHIED TRUE VOCAL FOLD, GOOD GLOTTIC CLOSURE. G-CODES VOICE: [id number] Addendum: 06/02/19 at 1351 by RADHA LAUREN, [facility] Amended: Links added.
[2019-06-02 16:00] VITALS: BP 98/43
--- NOTE | 2019-06-02 16:00 | NUR ---
GUILLE PLAN- OUT PT SPEECH THERAPY ADVISED THE PRIMARY RN EARLIER THIS AFTERNOON THAT PT WILL NEED CARLYLE HAVE AN APPOINTMENT WITH HER PRIMARY MD VAZ FOR WEDNESDAY TO GET REFERRED FOR OUT PATIENT SPEECH THERAPY Addendum: 06/02/19 at 1817 by ADELE BARNES RN CM Amended: Links added.
--- NOTE | 2019-06-02 19:50 | NUR ---
PATIENT DISCHARGE PATIENT DISCHARGED, IV DISCONTINUED, BLEEDING CONTROLLED, CATHLON INTACT, PATIENT TOLERATED WITHOUT INCIDENT.
[2019-06-06] MEDS ORDERED: SPIR100T5 PO (00:21)
== END 2019-06-02 19:56 | disposition home or self-care (01) | DRG 433 ==
LOC: EDH 01:18 → EDHIP 07:30 → OBSVTOIN 07:30 → 3AH 09:02
PROVIDERS: ADMIT Internal Medicine; ATTEND Internal Medicine
PROC: 0W9G3ZZ Drainage of Peritoneal Cavity, Percutaneous Approach (ICD-10-PCS; 2019-05-29)
PROC: 0CJS8ZZ Inspection of Larynx, Via Natural or Artificial Opening Endoscopic (ICD-10-PCS; principal; 2019-06-01)
PROC: 0W9G3ZZ Drainage of Peritoneal Cavity, Percutaneous Approach (ICD-10-PCS; 2019-06-01)
DX: K74.60 Unspecified cirrhosis of liver (principal); J45.901 Unspecified asthma with (acute) exacerbation; R18.8 Other ascites; J38.3 Other diseases of vocal cords; R13.10 Dysphagia, unspecified; Z79.01 Long term (current) use of anticoagulants; Z79.899 Other long term (current) drug therapy; Z86.718 Personal history of other venous thrombosis and embolism; Z82.5 Family history of asthma and other chronic lower respiratory diseases
CPT/HCPCS: 36415; 49083; 70490; 71045; 71250; 80048; 80053; 82140; 82948; 83735; 83880; 84443; 84484; 85025; 85027; 85610; 85730; 87804; 92522; 92610; 93005; 94010; 94640; 94664; 96365; 99291; G0378; J1956; J2920; J2930; J3490; P9046

== ENCOUNTER → 2019-06-15 | Outpatient (CLI) | payer OTHER ==
[~2019-06-15] MED LIST changes: +ALBU8.5H8 IH; +ALBUMIN (HUMAN) 25% 200 ML IV SCH; +GUAFACSF5L PO; +LACT10SO9 PO; +SPIR100T5 PO; -SPIR50TA5 PO
[2019-06-15 10:41] LABS: BASOPHILS % (AUTO) 0.6 % (0.0-5.0); EOSINOPHILS % (AUTO) 2.4 % (0.0-8.0); HEMATOCRIT 26.6 % (36-48); LYMPHOCYTES % (AUTO) 25.7 % (21.0-51.0); MEAN CORPUSCULAR HEMOGLOBIN 33.1 pg (27.0-33.0); MEAN CORPUSCULAR HGB CONC 33.9 g/dL (32.0-36.0); MEAN CORPUSCULAR VOLUME 97.6 fL (79-99); MONOCYTES % (AUTO) 9.4 % (3.0-13.0); NEUTROPHILS % (AUTO) 61.9 % (40.0-77.0); PLATELET COUNT (AUTO) 89 K/uL (130-400); RED BLOOD CELL COUNT(AUTO) 2.73 MIL/uL (4.00-5.50); RED CELL DISTRIBUTION WIDTH 18.6 % (11.0-15.5); WHITE BLOOD COUNT (AUTO) 4.4 K/uL (4.8-10.8)
[2019-06-15 10:53] LABS: CREATININE 0.6 mg/dL (0.5-1.5); POTASSIUM 3.2 mmol/L (3.5-5.1)
[2019-06-15 10:54] LABS: INR 1.21 (0.85-1.15); PROTHROMBIN TIME 12.6 SEC (9.6-11.6)
[2019-06-15 10:59] LABS: BILIRUBIN,TOTAL 1.5 mg/dL (0.2-1.0); TOTAL PROTEIN, SERUM 5.9 g/dL (6.0-8.3)
--- NOTE | 2019-06-15 12:45 | NUR ---
U/S GD PARACENTESIS PROCEDURE PERFORMED BY DR Bernarda WINKLER. PUNCTURE SITE RLQ AND PATIENT TOLERATED PROCEDURE WELL. TOTAL REMOVED 3.7 LITERS OF CLOUDY YELLOW FLUID. SPECIMEN SENT TO LAB. END OF PROCEDURE AT 1210. CATHETER REMOVED AND DRESSING APPLIED. NO BLEEDING NOTED. DISCHARGE INSTRUCTIONS GIVEN TO PATIENT AND VERBALIZED UNDERSTANDING. DISCHARGED VIA W/C AT 1245. AAO X3 WITH NO C/O PAIN.
[2019-06-15 13:53] LABS: APPEARANCE BODY FLUID CLOUDY (CLEAR); BODY FLUID WBC 38 /cu. mm.; COLOR,BODY FLUID YELLOW (LT YELLOW); SPECIMENTYPE,BODY FLUID ASCITES; TOTAL VOLUME,BODY FLUID 3700 mL
[2019-06-15 13:54] LABS: BODY FLUID RBC 700 /cu. mm.
[2019-06-15 14:02] LABS: BF LYMPHOCYTE 17 %; BF MESOTHELIAL 49 %; BF MONOCYTE 2 %
== END | disposition home or self-care (01) ==
LOC: RAH 09:56
PROVIDERS: ATTEND Internal Medicine Gastroenterology
DX: K70.31 Alcoholic cirrhosis of liver with ascites (principal); F32.9 Major depressive disorder, single episode, unspecified; Z79.899 Other long term (current) drug therapy; Z82.5 Family history of asthma and other chronic lower respiratory diseases
CPT/HCPCS: 36415; 49083; 80053; 85025; 85610; 87071; 87205; 88108; 89051; A4215; P9046

== ENCOUNTER → 2019-06-22 | Outpatient (CLI) | payer OTHER ==
[~2019-06-22] MED LIST changes: +ALBUMIN (HUMAN) 25% 100 ML IV ONE; -ALBUMIN (HUMAN) 25% 200 ML IV SCH
[2019-06-22 09:33] LABS: BASOPHILS % (AUTO) 0.5 % (0.0-5.0); EOSINOPHILS % (AUTO) 1.1 % (0.0-8.0); HEMATOCRIT 26.5 % (36-48); LYMPHOCYTES % (AUTO) 12.4 % (21.0-51.0); MEAN CORPUSCULAR HGB CONC 33.5 g/dL (32.0-36.0); MEAN CORPUSCULAR VOLUME 98.5 fL (79-99); MONOCYTES % (AUTO) 7.1 % (3.0-13.0); NEUTROPHILS % (AUTO) 78.9 % (40.0-77.0); PLATELET COUNT (AUTO) 105 K/uL (130-400); RED BLOOD CELL COUNT(AUTO) 2.69 MIL/uL (4.00-5.50); RED CELL DISTRIBUTION WIDTH 17.7 % (11.0-15.5); WHITE BLOOD COUNT (AUTO) 5.8 K/uL (4.8-10.8)
[2019-06-22 09:46] LABS: CREATININE 0.7 mg/dL (0.5-1.5); POTASSIUM 3.3 mmol/L (3.5-5.1)
[2019-06-22 09:50] LABS: INR 1.29 (0.85-1.15); PROTHROMBIN TIME 13.4 SEC (9.6-11.6)
--- NOTE | 2019-06-22 11:15 | NUR ---
U/S GD PARACENTESIS PROCEDURE PERFORMED BY DR Sonya PENNY. PUNCTURE SITE RLQ AND PATIENT TOLERATED PROCEDURE WELL. TOTAL REMOVED 4 LITERS OF CLOUDY YELLOW FLUID. [place] [address]. CATHETER REMOVED AND DRESSING APPLIED. NO BLEEDING NOTED. DISCHARGE INSTRUCTIONS GIVEN TO PATIENT AND VERBALIZED UNDERSTANDING. DISCHARGED VIA W/C AT 1115. AAO X3 WITH NO C/O PAIN.
[2019-06-22 14:30] LABS: SPECIMENTYPE,BODY FLUID ASCITES
[2019-06-22 14:31] LABS: APPEARANCE BODY FLUID SLIGHTLY CLOUDY (CLEAR); BODY FLUID WBC 273 /cu. mm.; COLOR,BODY FLUID YELLOW (LT YELLOW); TOTAL VOLUME,BODY FLUID 4000 mL
[2019-06-22 14:32] LABS: BODY FLUID RBC 1840 /cu. mm.
[2019-06-22 14:50] LABS: BF LYMPHOCYTE 9 %; BF MESOTHELIAL 2 %
== END | disposition home or self-care (01) ==
LOC: RAH 09:20
PROVIDERS: ATTEND Internal Medicine Gastroenterology
DX: K70.31 Alcoholic cirrhosis of liver with ascites (principal); J45.909 Unspecified asthma, uncomplicated; I11.0 Hypertensive heart disease with heart failure; I50.9 Heart failure, unspecified; E11.9 Type 2 diabetes mellitus without complications; E78.2 Mixed hyperlipidemia; Z79.01 Long term (current) use of anticoagulants; Z79.899 Other long term (current) drug therapy
CPT/HCPCS: 36415; 49083; 80048; 85025; 85610; 87071; 87205; 88108; 88305; 89051; A4215; P9046

== ENCOUNTER → 2019-06-30 | Outpatient (CLI) | payer OTHER ==
[~2019-06-30] MED LIST changes: -ALBUMIN (HUMAN) 25% 100 ML IV ONE; +ALBUMIN (HUMAN) 25% 200 ML IV SCH
--- NOTE | 2019-06-30 08:40 | NUR ---
U/S GD PARACENTESIS PROCEDURE PERFORMED BY DR CABALLERO. PUNCTURE SITE RIGHT LOWER QUADRANT OF ABDOMEN AND PATIENT TOLERATED PROCEDURE WELL. TOTAL REMOVED 6.0 LITERS OF CLOUDY HOUSE ASCITES FLUID. END OF PROCEDURE AT 1. CATHETER REMOVED AND DRESSING APPLIED. ALBUMIN 25% 50 GRAMS GIVEN DURING PROCED[place] [facility] [place]. NO BLEEDING NOTED. DISCHARGE INSTRUCTIONS GIVEN TO PATIENT. PATIENT VERBALIZED UNDERSTANDING. PT STABLE, AAO X3 WITH NO C/O PAIN. SPECIMEN SENT TO LAB.
[2019-06-30 12:35] LABS: APPEARANCE BODY FLUID SLIGHTLY CLOUDY (CLEAR); COLOR,BODY FLUID YELLOW (LT YELLOW); SPECIMENTYPE,BODY FLUID ASCITES
[2019-06-30 12:36] LABS: BODY FLUID RBC 425 /cu. mm.; BODY FLUID WBC 56 /cu. mm.; TOTAL VOLUME,BODY FLUID 6000 mL
[2019-06-30 12:39] LABS: BF LYMPHOCYTE 32 %; BF MONOCYTE 54 %
== END ==
LOC: RAH 08:10
PROVIDERS: ATTEND Internal Medicine Gastroenterology
DX: K70.31 Alcoholic cirrhosis of liver with ascites (principal); J45.909 Unspecified asthma, uncomplicated; I11.0 Hypertensive heart disease with heart failure; I50.9 Heart failure, unspecified; E11.9 Type 2 diabetes mellitus without complications; E78.2 Mixed hyperlipidemia
CPT/HCPCS: 49083; 87071; 87205; 88108; 88305; 89051; 96365; A4215; P9046

== ENCOUNTER → 2019-07-04 | Outpatient (CLI) | payer OTHER ==
[~2019-07-04] MED LIST changes: -ALBUMIN (HUMAN) 25% 200 ML IV SCH
== END | disposition home or self-care (01) ==
LOC: RAH 14:01
PROVIDERS: ATTEND Family Medicine
DX: N28.1 Cyst of kidney, acquired (principal); R18.8 Other ascites; E11.22 Type 2 diabetes mellitus with diabetic chronic kidney disease; I12.9 Hypertensive chronic kidney disease with stage 1 through stage 4 chronic kidney disease, or unspecified chronic kidney disease; N18.9 Chronic kidney disease, unspecified
CPT/HCPCS: 76770

== ENCOUNTER → 2019-07-07 | Outpatient (CLI) | payer OTHER ==
[~2019-07-07] VITALS: Ht 157.5 cm; Wt 67.7 kg
[~2019-07-07] MED LIST changes: +ALBUMIN (HUMAN) 25% 200 ML IV ONE
--- NOTE | 2019-07-07 09:10 | NUR ---
U/S GUIDED PARACENTESIS PROCEDURE PERFORMED BY DR. CABALLERO. PUNCTURE SITE RIGHT LOWER QUADRANT OF ABDOMEN AND PATIENT TOLERATED PROCEDURE WELL. TOTAL REMOVED 6.3 LITERS OF CLOUDY YELLOW ASCITES FLUID. END OF PROCEDURE AT 0940. CATHETER REMOVED AND DRESSING APPLIED. ALBUMIN 25% 50 GRAMS GIVEN IV [place]URING [place] [facility] [place]. NO BLEEDING NOTED. DISCHARGE INSTRUCTIONS GIVEN TO PATIENT. PATIENT VERBALIZED UNDERSTANDING. PT DISCHARGED VIA, STABLE, AAO X3 WITH NO C/O PAIN @1020. SPECIMEN SENT TO LAB.
[2019-07-07 12:28] LABS: APPEARANCE BODY FLUID CLOUDY (CLEAR); BODY FLUID WBC 49 /cu. mm.; COLOR,BODY FLUID YELLOW (LT YELLOW); SPECIMENTYPE,BODY FLUID ASCITES; TOTAL VOLUME,BODY FLUID 6200 mL
[2019-07-07 12:29] LABS: BODY FLUID RBC 675 /cu. mm.
[2019-07-07 12:43] LABS: BF LYMPHOCYTE 26 %; BF MESOTHELIAL 2 %
== END | disposition home or self-care (01) ==
LOC: RAH 08:14
PROVIDERS: ATTEND Internal Medicine Gastroenterology
DX: K70.31 Alcoholic cirrhosis of liver with ascites (principal); E11.22 Type 2 diabetes mellitus with diabetic chronic kidney disease; I13.0 Hypertensive heart and chronic kidney disease with heart failure and stage 1 through stage 4 chronic kidney disease, or unspecified chronic kidney disease; I50.89 Other heart failure; N18.3 Chronic kidney disease, stage 3 (moderate); J45.909 Unspecified asthma, uncomplicated; N20.0 Calculus of kidney; F32.9 Major depressive disorder, single episode, unspecified; E78.2 Mixed hyperlipidemia; Z87.59 Personal history of other complications of pregnancy, childbirth and the puerperium; Z87.891 Personal history of nicotine dependence; Z79.899 Other long term (current) drug therapy
CPT/HCPCS: 49083; 87071; 87205; 88108; 88305; 89051; 96365; A4215; P9046

== ENCOUNTER 2019-07-09 00:11 | Emergency (ER) | payer OTHER ==
[~2019-07-09 00:11] MED LIST changes: -ALBUMIN (HUMAN) 25% 200 ML IV ONE; -LACT10SO9 PO
[2019-07-09 00:50] LABS: BASOPHILS % (AUTO) 0.8 % (0.0-5.0); EOSINOPHILS % (AUTO) 0.4 % (0.0-8.0); HEMATOCRIT 28.1 % (36-48); LYMPHOCYTES % (AUTO) 26.7 % (21.0-51.0); MEAN CORPUSCULAR HEMOGLOBIN 31.3 pg (27.0-33.0); MEAN CORPUSCULAR VOLUME 94.9 fL (79-99); MONOCYTES % (AUTO) 8.2 % (3.0-13.0); NEUTROPHILS % (AUTO) 63.9 % (40.0-77.0); PLATELET COUNT (AUTO) 120 K/uL (130-400); RED BLOOD CELL COUNT(AUTO) 2.96 MIL/uL (4.00-5.50); RED CELL DISTRIBUTION WIDTH 17.6 % (11.0-15.5); WHITE BLOOD COUNT (AUTO) 6.2 K/uL (4.8-10.8)
[2019-07-09 00:50] LABS: BILIRUBIN,URINE Small (NEGATIVE); COLOR,URINE Dark Yellow (YELLOW); GLUCOSE, URINE (UA) Negative (NEGATIVE); KETONES,URINE Trace mg/dL (NEGATIVE); LEUKOCYTE ESTERASE ,URINE Moderate (NEGATIVE); NITRATE,URINE Negative (NEGATIVE); OCCULT BLOOD,URINE Small (NEGATIVE); PROTEIN,URINE Negative (NEGATIVE)
[2019-07-09 00:58] LABS: APPEARANCE,URINE SLIGHTLY CLOUDY (CLEAR)
[2019-07-09 01:00] LABS: INR 1.52 (0.85-1.15); PARTIAL THROMBOPLASTIN TIME 32.3 SEC (26.3-35.5); PROTHROMBIN TIME 15.5 SEC (9.6-11.6)
[2019-07-09 01:02] LABS: BACTERIA,URINE Moderate /HPF (None Seen); CALCIUM OXALATE CRYSTALS,UR Few /LPF (None Seen); MUCUS,URINE Few LPF (None Seen)
[2019-07-09 01:03] LABS: CREATININE 0.7 mg/dL (0.5-1.5); POTASSIUM 3.8 mmol/L (3.5-5.1)
[2019-07-09 01:05] LABS: ALBUMIN 2.2 g/dL (3.5-5.0); BILIRUBIN,DIRECT 0.6 mg/dL (0.0-0.3); BILIRUBIN,TOTAL 1.2 mg/dL (0.2-1.0); TOTAL PROTEIN, SERUM 5.8 g/dL (6.0-8.3)
[2019-07-09 01:12] LABS: B-TYPE NATRIURETIC PEPTIDE 42 pg/mL (0-100)
[2019-07-09] MEDS ORDERED: LACT10SO9 PO (18:28)
== END 2019-07-09 02:54 | disposition home or self-care (01) ==
LOC: EDH 00:11
DX: T85.631A Leakage of intraperitoneal dialysis catheter, initial encounter (principal); K74.69 Other cirrhosis of liver; E11.9 Type 2 diabetes mellitus without complications; I11.0 Hypertensive heart disease with heart failure; I50.9 Heart failure, unspecified; Y83.8 Other surgical procedures as the cause of abnormal reaction of the patient, or of later complication, without mention of misadventure at the time of the procedure; Y82.8 Other medical devices associated with adverse incidents
CPT/HCPCS: 36415; 80048; 80076; 81001; 82550; 83690; 83880; 84484; 85025; 85610; 85730

== ENCOUNTER 2019-07-09 16:02 | Inpatient (IN) | payer OTHER ==
[~2019-07-09] VITALS: Ht 147.3 cm; Wt 63.2 kg
[2019-07-09] MEDS ORDERED: ACETAMINOPHEN-CODEINE 300/30MG TAB PO PRN (18:00)
[2019-07-09] MEDS ORDERED: ONDANSETRON HCL 4 MG/2 ML VIAL IV PRN (18:00)
[2019-07-09] MEDS ORDERED: LACTULOSE 20 GM/30 ML UDCUP PO PRN (18:00)
[2019-07-09] MEDS ORDERED: NITROGLYCERIN 0.4 MG SL TAB SL PRN (18:00)
[2019-07-09] MEDS ORDERED: ACETAMINOPHEN 325 MG TAB PO PRN ×2 (18:00)
[2019-07-09] MEDS ORDERED: GUAIFENESIN-DM 200/20 MG 10 ML PO PRN (18:00)
[2019-07-09] MEDS ORDERED: ZOLPIDEM TARTRATE 5 MG TAB PO PRN (18:00)
[2019-07-09] MEDS ORDERED: DIPHENHYDRAMINE HCL 25 MG CAPSULE PO PRN (18:00)
[2019-07-09] MEDS ORDERED: HYDRALAZINE HCL 20 MG/ML VIAL IV PRN (18:00)
[2019-07-09] MEDS ORDERED: MAG HYDROX/AL HYDROX/SIMETH ES 30 ML SUSP UDCUP PO PRN (18:00)
[2019-07-09] MEDS ORDERED: LACT10SO9 PO (18:28)
[2019-07-09 19:05] VITALS: BP 117/60
[2019-07-09 19:20] LABS: BILIRUBIN,DIRECT 0.5 mg/dL (0.0-0.3); BILIRUBIN,TOTAL 0.9 mg/dL (0.2-1.0); CREATININE 1.1 mg/dL (0.5-1.5); POTASSIUM 3.9 mmol/L (3.5-5.1); TOTAL PROTEIN, SERUM 5.4 g/dL (6.0-8.3)
[2019-07-09 19:31] LABS: BASOPHILS % (AUTO) 0.9 % (0.0-5.0); EOSINOPHILS % (AUTO) 1.1 % (0.0-8.0); HEMATOCRIT 26.3 % (36-48); LYMPHOCYTES % (AUTO) 29.2 % (21.0-51.0); MEAN CORPUSCULAR HEMOGLOBIN 31.4 pg (27.0-33.0); MEAN CORPUSCULAR VOLUME 95.3 fL (79-99); MONOCYTES % (AUTO) 7.9 % (3.0-13.0); NEUTROPHILS % (AUTO) 60.9 % (40.0-77.0); PLATELET COUNT (AUTO) 108 K/uL (130-400); RED BLOOD CELL COUNT(AUTO) 2.76 MIL/uL (4.00-5.50); RED CELL DISTRIBUTION WIDTH 17.6 % (11.0-15.5); WHITE BLOOD COUNT (AUTO) 4.3 K/uL (4.8-10.8)
--- NOTE | 2019-07-09 19:33 | NUR ---
Pt admission Pt s/p paracentesis #2 as out patient. hx of liver cirrhosis, recurrent paracentesis, admitted for abd pain and incision leakage, VS stable on admission, no c/o pain at this time, pt comfortable in bed, family at bedside, night nurse notified and updated, care endorsed.
[2019-07-09 20:00] LABS: INR 1.61 (0.85-1.15); PARTIAL THROMBOPLASTIN TIME 35.1 SEC (26.3-35.5); PROTHROMBIN TIME 16.3 SEC (9.6-11.6)
--- NOTE | 2019-07-09 20:14 | NUR ---
DRAIN BAG Ostomy bag applied to Ruq,post paracentesis site draining clear liquid.Pt and son informed of procedure,verbalized understanding.
[2019-07-09] MEDS: FAMOTIDINE 20MG TAB 20 MG TAB PO SCH (20:28)
[2019-07-09 23:00] VITALS: BP 108/71
[2019-07-10] MEDS: LACTULOSE 20 GM/30 ML UDCUP PO SCH ×3 (02:18→19:28)
[2019-07-10 03:00] VITALS: BP 108/65
[2019-07-10 05:38] LABS: BASOPHILS % (AUTO) 0.6 % (0.0-5.0); EOSINOPHILS % (AUTO) 0.7 % (0.0-8.0); HEMATOCRIT 25.4 % (36-48); LYMPHOCYTES % (AUTO) 23.5 % (21.0-51.0); MEAN CORPUSCULAR HEMOGLOBIN 31.5 pg (27.0-33.0); MEAN CORPUSCULAR VOLUME 95.3 fL (79-99); MONOCYTES % (AUTO) 7.5 % (3.0-13.0); NEUTROPHILS % (AUTO) 67.7 % (40.0-77.0); PLATELET COUNT (AUTO) 91 K/uL (130-400); RED BLOOD CELL COUNT(AUTO) 2.67 MIL/uL (4.00-5.50); RED CELL DISTRIBUTION WIDTH 18.3 % (11.0-15.5)
[2019-07-10 05:54] LABS: CREATININE 0.7 mg/dL (0.5-1.5); POTASSIUM 3.8 mmol/L (3.5-5.1)
[2019-07-10 07:30] VITALS: BP 114/74
[2019-07-10] MEDS: SPIRONOLACTONE 25 MG TAB PO SCH ×2 (08:24→19:51)
[2019-07-10] MEDS: FERROUS SULFATE 325 MG TABLET.DR PO SCH (08:24)
[2019-07-10] MEDS: FUROSEMIDE 40 MG TABLET PO SCH (08:24)
[2019-07-10] MEDS: FAMOTIDINE 20MG TAB 20 MG TAB PO SCH ×2 (08:24→19:51)
[2019-07-10] MEDS: LISINOPRIL 5 MG TABLET PO SCH (08:25)
[2019-07-10] MEDS: APIXABAN 5 MG TABLET PO SCH ×2 (09:00→19:51)
[2019-07-10] MEDS ORDERED: ENOXAPARIN SODIUM 30 MG/0.3 ML SQ SCH (09:00)
[2019-07-10 11:00] VITALS: BP 102/58
--- NOTE | 2019-07-10 12:26 | NUR ---
DCP CM met with pt discussed dc plans. Pt is independent prior to admission, lives at home w/spouse. Pt has a walker. Denies any other services/equipments. Pt is a well known admission for recurrent ascites r/t cirrhosis of the liver hx alcohol usage, per spouse daughter likes to take pt drinking. Feels safe to go back home, still drives, spouse and children able to assist with transportation and needs as necessary. DC plan to home once stable. CM to cont to follow up. Addendum: 07/10/19 at 1228 by KIET SILVA LVN CM Amended: Links added.
[2019-07-10 16:00] VITALS: BP 114/70
[2019-07-10 19:10] VITALS: BP 126/70
[2019-07-10] MEDS: MIRTAZAPINE 15 MG TABLET PO SCH (19:51)
--- NOTE | 2019-07-10 22:38 | NUR ---
CUTTER DOWN Order for ultrasound clarified with Pamela De La Torre.
[2019-07-10 23:15] VITALS: BP 107/54
[2019-07-11] MEDS: LACTULOSE 20 GM/30 ML UDCUP PO SCH ×3 (02:41→20:16)
[2019-07-11 03:15] VITALS: BP 127/74
--- NOTE | 2019-07-11 03:32 | NUR ---
AWAKE Pt awake,alert.Boyfriend at bedside.Instructed re plan for Paracentesis in am.
[2019-07-11 05:39] LABS: HEMATOCRIT 30.8 % (36-48); MEAN CORPUSCULAR HEMOGLOBIN 31.4 pg (27.0-33.0); MEAN CORPUSCULAR VOLUME 95.2 fL (79-99); NUCLEATED RED BLOOD CELLS 0.1 % (0.0-0.19); PLATELET COUNT (AUTO) 103 K/uL (130-400); RED BLOOD CELL COUNT(AUTO) 3.23 MIL/uL (4.00-5.50); WHITE BLOOD COUNT (AUTO) 5.9 K/uL (4.8-10.8)
[2019-07-11 05:50] LABS: CREATININE 0.9 mg/dL (0.5-1.5); POTASSIUM 3.6 mmol/L (3.5-5.1)
[2019-07-11 05:53] LABS: INR 1.49 (0.85-1.15); PARTIAL THROMBOPLASTIN TIME 35.8 SEC (26.3-35.5); PROTHROMBIN TIME 15.4 SEC (9.6-11.6)
[2019-07-11 07:30] VITALS: BP 116/72
[2019-07-11] MEDS: APIXABAN 5 MG TABLET PO SCH ×2 (10:16→20:17)
[2019-07-11] MEDS: LISINOPRIL 5 MG TABLET PO SCH (10:16)
[2019-07-11] MEDS: FUROSEMIDE 40 MG TABLET PO SCH (10:17)
[2019-07-11] MEDS: FERROUS SULFATE 325 MG TABLET.DR PO SCH (10:17)
[2019-07-11] MEDS: SPIRONOLACTONE 25 MG TAB PO SCH ×2 (10:17→20:17)
[2019-07-11] MEDS: FAMOTIDINE 20MG TAB 20 MG TAB PO SCH ×2 (10:17→20:17)
[2019-07-11 11:00] VITALS: BP 111/65
--- NOTE | 2019-07-11 12:00 | NUR ---
TO RAD. DEPTNancy FOR PARACENTESIS BY IRNancy
--- NOTE | 2019-07-11 12:30 | NUR ---
PROCEDURE PATIENT SCHEDULED FOR U/S GD PARACENTESIS. PATIENT LEAKING CLEAR FLUID FROM PREVIOUS PUNCTURE SITE FROM LAST WEDNESDAY. COLOSTOMY BAG REMOVED AND U/S OF ABDOMEN TAKEN AND REVIEWED BY DR Sonya MEDRANO. MINIMAL FLUID SEEN AND PROCEDURE CANCELLED. REPORT GIVEN TO Yaa LEYVA RN AND PATIENT TRANSPORTED TO [facility] VIA BED AT 1230. DRESSING APPLIED WITH NO LEAKING NOTED.
[2019-07-11 16:00] VITALS: BP 133/73
--- NOTE | 2019-07-11 16:00 | NUR ---
DR. KISER ROUNDED, PLANS TO DISCHARGE IN AM. DRESSING TO ABD.PARA TAP SITE WITH A SM. AMT OF LEAKAGE NOTED.
[2019-07-11 20:00] VITALS: BP 113/65
[2019-07-11] MEDS: MIRTAZAPINE 15 MG TABLET PO SCH (20:17)
[2019-07-12] VITALS: BP 116/72
[2019-07-12] MEDS: LACTULOSE 20 GM/30 ML UDCUP PO SCH ×2 (02:07→08:26)
--- NOTE | 2019-07-12 02:11 | NUR ---
ASLEEP Pt asleep,respirations even and unlabored.
[2019-07-12 04:00] VITALS: BP 112/64
[2019-07-12 05:40] LABS: CREATININE 0.8 mg/dL (0.5-1.5); POTASSIUM 3.9 mmol/L (3.5-5.1)
[2019-07-12 05:42] LABS: HEMATOCRIT 26.8 % (36-48); MEAN CORPUSCULAR HGB CONC 32.4 g/dL (32.0-36.0); MEAN CORPUSCULAR VOLUME 95.8 fL (79-99); NUCLEATED RED BLOOD CELLS 0.1 % (0.0-0.19); PLATELET COUNT (AUTO) 97 K/uL (130-400); RED BLOOD CELL COUNT(AUTO) 2.79 MIL/uL (4.00-5.50); RED CELL DISTRIBUTION WIDTH 18.2 % (11.0-15.5); WHITE BLOOD COUNT (AUTO) 4.2 K/uL (4.8-10.8)
[2019-07-12 08:16] VITALS: BP 114/66
[2019-07-12] MEDS: FERROUS SULFATE 325 MG TABLET.DR PO SCH (08:25)
[2019-07-12] MEDS: FAMOTIDINE 20MG TAB 20 MG TAB PO SCH (08:26)
[2019-07-12] MEDS: LISINOPRIL 5 MG TABLET PO SCH (08:26)
[2019-07-12] MEDS: SPIRONOLACTONE 25 MG TAB PO SCH (08:26)
[2019-07-12] MEDS: APIXABAN 5 MG TABLET PO SCH (08:26)
[2019-07-12] MEDS: FUROSEMIDE 40 MG TABLET PO SCH (08:26)
[2019-07-12 11:39] VITALS: BP 122/76
== END 2019-07-12 13:30 | disposition home or self-care (01) | DRG 394 ==
LOC: EDH 16:02 → OBSVTOIN 16:45 → EDHIP 16:45 → 3BH 18:11
PROVIDERS: ADMIT Internal Medicine Critical Care Medicine; ATTEND Internal Medicine Critical Care Medicine
DX: K94.09 Other complications of colostomy (principal); R18.8 Other ascites; K74.60 Unspecified cirrhosis of liver; K72.10 Chronic hepatic failure without coma; F10.20 Alcohol dependence, uncomplicated; Y83.8 Other surgical procedures as the cause of abnormal reaction of the patient, or of later complication, without mention of misadventure at the time of the procedure; Z91.11 Patient's noncompliance with dietary regimen; Z91.14 Patient's other noncompliance with medication regimen; Z91.19 Patient's noncompliance with other medical treatment and regimen; Z79.01 Long term (current) use of anticoagulants; Z79.899 Other long term (current) drug therapy; Z86.718 Personal history of other venous thrombosis and embolism; Y92.89 Other specified places as the place of occurrence of the external cause; Z82.5 Family history of asthma and other chronic lower respiratory diseases
CPT/HCPCS: 36415; 49083; 80048; 80076; 82140; 82948; 85025; 85027; 85610; 85730; 87040; G0378; J1650

== ENCOUNTER → 2019-07-14 | Outpatient (CLI) | payer OTHER ==
[~2019-07-14] MED LIST changes: +ALBUMIN (HUMAN) 25% 200 ML IV SCH; -GUAFACSF5L PO; +LACT10SO9 PO
--- NOTE | 2019-07-14 08:55 | NUR ---
U/S GD PARACENTESIS PROCEDURE PERFORMED BY DR PENNY. PUNCTURE SITE RIGHT LOWER QUADRANT OF ABDOMEN AND PATIENT TOLERATED PROCEDURE WELL. TOTAL REMOVED 3.5 LITERS OF CLOUDY YELLOW FLUID. END OF PROCEDURE AT 0915. CATHETER REMOVED AND DRESSING APPLIED. NO BLEEDING NOTED. [facility] [place]B[facility] PR[place]OCOL NOT MET. DISCHARGE INSTRUCTIONS GIVEN TO PATIENT. PATIENT VERBALIZED UNDERSTANDING. PT DISCHARGED AMBULATORY, STABLE, AAO X3 WITH NO C/O PAIN. SPECIMEN SENT TO LAB.
[2019-07-14 17:29] LABS: SPECIMENTYPE,BODY FLUID ASCITES
[2019-07-14 17:30] LABS: APPEARANCE BODY FLUID SLIGHTLY CLOUDY (CLEAR); COLOR,BODY FLUID YELLOW (LT YELLOW); TOTAL VOLUME,BODY FLUID 3500 mL
[2019-07-14 17:31] LABS: BODY FLUID RBC 467 /cu. mm.; BODY FLUID WBC 86 /cu. mm.
[2019-07-14 17:33] LABS: BF LYMPHOCYTE 11 %; BF MESOTHELIAL 14 %; BF MONOCYTE 2 %
== END | disposition home or self-care (01) ==
LOC: RAH 08:18
PROVIDERS: ATTEND Internal Medicine Gastroenterology
DX: K70.31 Alcoholic cirrhosis of liver with ascites (principal); E11.9 Type 2 diabetes mellitus without complications; E78.2 Mixed hyperlipidemia; I11.0 Hypertensive heart disease with heart failure; I50.9 Heart failure, unspecified; F32.9 Major depressive disorder, single episode, unspecified; J45.909 Unspecified asthma, uncomplicated; Z98.890 Other specified postprocedural states; Z79.899 Other long term (current) drug therapy; Z79.01 Long term (current) use of anticoagulants; Z87.891 Personal history of nicotine dependence; Z82.5 Family history of asthma and other chronic lower respiratory diseases
CPT/HCPCS: 49083; 87071; 87205; 88108; 89051; A4215; P9046

== ENCOUNTER → 2019-07-21 | Outpatient (CLI) | payer OTHER ==
--- NOTE | 2019-07-21 11:30 | NUR ---
U/S GD PARACENTESIS PROCEDURE PERFORMED BY DR Emilee CABALLERO. PUNCTURE SITE LLQ AND PATIENT TOLERATED PROCEDURE WELL. TOTAL REMOVED 3.1 LITERS OF CLOUDY YELLWO FLUID. SPECIMEN SENT TO LAB. END OF PROCEDURE AT 1055. CATHETER REMOVED AND DRESSING APPLIED. NO BLEEDING NOTED. DISCHARGE INSTRUCTIONS GIVEN TO PATIENT AND VERBALIZED UNDERSTANDING. DISCHARGED VIA AMBULATION AT 1130. AAO X3 WITH NO C/O PAIN.
[2019-07-21 13:47] LABS: APPEARANCE BODY FLUID CLEAR (CLEAR); BODY FLUID WBC 162 /cu. mm.; COLOR,BODY FLUID YELLOW (LT YELLOW); SPECIMENTYPE,BODY FLUID ASCITES; TOTAL VOLUME,BODY FLUID 3100 mL
[2019-07-21 13:48] LABS: BODY FLUID RBC 1285 /cu. mm.
[2019-07-21 13:50] LABS: BF LYMPHOCYTE 32 %; BF MESOTHELIAL 25 %; BF MONOCYTE 17 %
== END | disposition home or self-care (01) ==
LOC: RAH 09:57
PROVIDERS: ATTEND Internal Medicine Gastroenterology
DX: K70.31 Alcoholic cirrhosis of liver with ascites (principal); E11.9 Type 2 diabetes mellitus without complications; I11.0 Hypertensive heart disease with heart failure; I50.9 Heart failure, unspecified; E78.2 Mixed hyperlipidemia
CPT/HCPCS: 49083; 87071; 87205; 88108; 88305; 89051; A4215; P9046

== ENCOUNTER → 2019-07-28 | Outpatient (CLI) | payer OTHER ==
--- NOTE | 2019-07-28 09:25 | NUR ---
U/S GD PARACENTESIS PROCEDURE PERFORMED BY DR WINKLER. PUNCTURE SITE RIGHT UPPER QUADRANT OF ABDOMEN AND PATIENT TOLERATED PROCEDURE WELL. TOTAL REMOVED 4.5 LITERS OF CLOUDY YELLOW FLUID. END OF PROCEDURE AT 0945. CATHETER REMOVED AND DRESSING APPLIED. NO BLEEDING NOTED. ALBUMIN 25% 25 GRAMS GIVEN DURING PROCEDURE PER [facility] [place]. DISCHARGE INSTRUCTIONS GIVEN TO PATIENT. PATIENT VERBALIZED UNDERSTANDING. PT DISCHARGED AMBULATORY, STABLE, AAO X3 WITH NO C/O PAIN. SPECIMEN SENT TO LAB.
[2019-07-28 12:13] LABS: APPEARANCE BODY FLUID SLIGHTLY CLOUDY (CLEAR); COLOR,BODY FLUID LT YELLOW (LT YELLOW); SPECIMENTYPE,BODY FLUID ASCITES; TOTAL VOLUME,BODY FLUID 4500 mL
[2019-07-28 12:14] LABS: BODY FLUID RBC 725 /cu. mm.; BODY FLUID WBC 38 /cu. mm.
[2019-07-28 12:24] LABS: BF LYMPHOCYTE 58 %; BF MESOTHELIAL 16 %
== END | disposition home or self-care (01) ==
LOC: RAH 08:15
PROVIDERS: ATTEND Internal Medicine Gastroenterology
DX: K70.31 Alcoholic cirrhosis of liver with ascites (principal); I50.9 Heart failure, unspecified; E11.9 Type 2 diabetes mellitus without complications; E78.2 Mixed hyperlipidemia; I11.0 Hypertensive heart disease with heart failure; F32.9 Major depressive disorder, single episode, unspecified; J45.909 Unspecified asthma, uncomplicated; Z79.01 Long term (current) use of anticoagulants; Z98.890 Other specified postprocedural states; Z79.899 Other long term (current) drug therapy; Z87.891 Personal history of nicotine dependence
CPT/HCPCS: 49083; 87071; 87205; 89051; 96365; A4215; P9046

== ENCOUNTER → 2019-08-04 | Outpatient (CLI) | payer MEDICARE, OTHER ==
--- NOTE | 2019-08-04 09:30 | NUR ---
U/S GD PARACENTESIS PROCEDURE PERFORMED BY DR Sonya PENNY. PUNCTURE SITE RIGHT LOWER QUADRANT OF ABDOMEN AND PATIENT TOLERATED PROCEDURE WELL. TOTAL REMOVED 4.5 LITERS OF CLOUDY YELLOW FLUID. END OF PROCEDURE AT 0900. CATHETER REMOVED AND DRESSING APPLIED. NO BLEEDING NOTED. ALBUMIN 25% 50 GRAMS GIVEN DURING PROCEDURE PER [facility] [place]. DISCHARGE INSTRUCTIONS GIVEN TO PATIENT. PATIENT VERBALIZED UNDERSTANDING. PT DISCHARGED AMBULATORY, STABLE, AAO X3 WITH NO C/O PAIN. SPECIMEN SENT TO LAB.
[2019-08-04 12:06] LABS: SPECIMENTYPE,BODY FLUID ASCITES
[2019-08-04 12:07] LABS: APPEARANCE BODY FLUID CLEAR (CLEAR); BODY FLUID RBC 1129 /cu. mm.; COLOR,BODY FLUID YELLOW (LT YELLOW); TOTAL VOLUME,BODY FLUID 4500 mL
[2019-08-04 12:08] LABS: BODY FLUID WBC 73 /cu. mm.
[2019-08-04 12:52] LABS: BF BASOPHIL 1 %; BF LYMPHOCYTE 28 %; BF MESOTHELIAL 20 %; BF MONOCYTE 33 %
== END | disposition home or self-care (01) ==
LOC: RAH 07:40
PROVIDERS: ATTEND Internal Medicine Gastroenterology
DX: K70.31 Alcoholic cirrhosis of liver with ascites (principal)
CPT/HCPCS: 49083; 87071; 87205; 88108; 88305; 89051; 96365; A4215; P9046

== ENCOUNTER → 2019-08-11 | Outpatient (CLI) | payer OTHER ==
[~2019-08-11] MED LIST changes: +ALBUMIN (HUMAN) 25% 100 ML IV SCH; -ALBUMIN (HUMAN) 25% 200 ML IV SCH
[2019-08-11 08:54] LABS: HEMATOCRIT 30.5 % (36-48); MEAN CORPUSCULAR HEMOGLOBIN 30.3 pg (27.0-33.0); MEAN CORPUSCULAR HGB CONC 32.7 g/dL (32.0-36.0); MEAN CORPUSCULAR VOLUME 92.6 fL (79-99); PLATELET COUNT (AUTO) 127 K/uL (130-400); RED BLOOD CELL COUNT(AUTO) 3.29 MIL/uL (4.00-5.50); RED CELL DISTRIBUTION WIDTH 18.3 % (11.0-15.5); WHITE BLOOD COUNT (AUTO) 4.6 K/uL (4.8-10.8)
[2019-08-11 09:00] LABS: INR 1.38 (0.85-1.15); PROTHROMBIN TIME 14.3 SEC (9.6-11.6)
[2019-08-11 09:10] LABS: ALBUMIN 2.3 g/dL (3.5-5.0); BILIRUBIN,TOTAL 1.4 mg/dL (0.2-1.0); CREATININE 0.8 mg/dL (0.5-1.5); POTASSIUM 3.7 mmol/L (3.5-5.1); TOTAL PROTEIN, SERUM 6.7 g/dL (6.0-8.3)
--- NOTE | 2019-08-11 10:30 | NUR ---
U/S GD PARACENTESIS PROCEDURE PERFORMED BY DR Bernarda WINKLER. PUNCTURE SITE RIGHT LOWER QUADRANT OF ABDOMEN AND PATIENT TOLERATED PROCEDURE WELL. TOTAL REMOVED 4.1 LITERS OF CLOUDY YELLOW FLUID. END OF PROCEDURE AT 1000. CATHETER REMOVED AND DRESSING APPLIED. NO BLEEDING NOTED. ALBUMIN 25% 25 GRAMS GIVEN DURING PROCEDURE PER [facility] [place]. DISCHARGE INSTRUCTIONS GIVEN TO PATIENT. PATIENT VERBALIZED UNDERSTANDING. PT DISCHARGED AMBULATORY, STABLE, AAO X3 WITH NO C/O PAIN. SPECIMEN SENT TO LAB.
[2019-08-11 17:02] LABS: APPEARANCE BODY FLUID SLIGHTLY CLOUDY (CLEAR); COLOR,BODY FLUID YELLOW (LT YELLOW); SPECIMENTYPE,BODY FLUID ASCITES; TOTAL VOLUME,BODY FLUID 4100 mL
[2019-08-11 17:03] LABS: BODY FLUID WBC 97 /cu. mm.
[2019-08-11 17:04] LABS: BODY FLUID RBC 887 /cu. mm.
[2019-08-11 17:08] LABS: BF LYMPHOCYTE 40 %; BF MESOTHELIAL 25 %
[2019-08-11 17:16] LABS: BF MONOCYTE 16 %
== END | disposition home or self-care (01) ==
LOC: RAH 08:06
PROVIDERS: ATTEND Internal Medicine Gastroenterology
DX: K70.31 Alcoholic cirrhosis of liver with ascites (principal); J45.909 Unspecified asthma, uncomplicated; I11.0 Hypertensive heart disease with heart failure; I50.9 Heart failure, unspecified; E11.9 Type 2 diabetes mellitus without complications; E78.2 Mixed hyperlipidemia; F32.9 Major depressive disorder, single episode, unspecified; Z79.01 Long term (current) use of anticoagulants; Z79.899 Other long term (current) drug therapy; Z98.890 Other specified postprocedural states; Z87.891 Personal history of nicotine dependence; Z82.5 Family history of asthma and other chronic lower respiratory diseases; Z82.3 Family history of stroke
CPT/HCPCS: 36415; 49083; 80053; 85027; 85610; 87071; 87205; 88108; 89051; 96365; A4215; P9046

== ENCOUNTER → 2019-08-23 | Outpatient (CLI) | payer OTHER ==
[~2019-08-23] MED LIST changes: -ALBUMIN (HUMAN) 25% 100 ML IV SCH; +ALBUMIN (HUMAN) 25% 200 ML IV SCH
--- NOTE | 2019-08-23 10:00 | NUR ---
U/S GD PARACENTESIS PROCEDURE PERFORMED BY DR Sonya PENNY. PUNCTURE SITE RIGHT LOWER QUADRANT OF ABDOMEN AND PATIENT TOLERATED PROCEDURE WELL. TOTAL REMOVED 3.1 LITERS OF CLOUDY YELLOW FLUID. END OF PROCEDURE AT 1000. CATHETER REMOVED AND DRESSING APPLIED. NO BLEEDING NOTED. DISCHARGE INSTRUCTIONS GIVEN TO PATIENT. PATIENT VERBALIZED UNDERSTANDING. PT DISCHARGED AMBULATORY, STABLE, AAO X3 WITH NO C/O PAIN. SPECIMEN SENT TO LAB.
[2019-08-23 16:41] LABS: SPECIMENTYPE,BODY FLUID ASCITES
[2019-08-23 16:42] LABS: APPEARANCE BODY FLUID SLIGHTLY CLOUDY (CLEAR); BODY FLUID WBC 64 /cu. mm.; COLOR,BODY FLUID YELLOW (LT YELLOW); TOTAL VOLUME,BODY FLUID 3100 mL
[2019-08-23 16:43] LABS: BODY FLUID RBC 790 /cu. mm.
[2019-08-23 16:48] LABS: BF LYMPHOCYTE 37 %; BF MESOTHELIAL 27 %; BF MONOCYTE 7 %
== END ==
LOC: RAH 08:27
PROVIDERS: ATTEND Internal Medicine Gastroenterology
DX: K70.31 Alcoholic cirrhosis of liver with ascites (principal); F32.9 Major depressive disorder, single episode, unspecified; Z79.01 Long term (current) use of anticoagulants; Z79.899 Other long term (current) drug therapy; Z87.891 Personal history of nicotine dependence; Z82.5 Family history of asthma and other chronic lower respiratory diseases
CPT/HCPCS: 49083; 87071; 87077; 87186; 87205; 89051; A4215; P9046

== ENCOUNTER 2019-08-31 16:32 | Emergency (ER) | payer OTHER ==
[~2019-08-31 16:32] MED LIST changes: -ALBUMIN (HUMAN) 25% 200 ML IV SCH
[2019-08-31 17:40] LABS: BASOPHILS % (AUTO) 0.5 % (0.0-5.0); EOSINOPHILS % (AUTO) 1.7 % (0.0-8.0); HEMATOCRIT 27.5 % (36-48); LYMPHOCYTES % (AUTO) 22.5 % (21.0-51.0); MEAN CORPUSCULAR HEMOGLOBIN 28.3 pg (27.0-33.0); MEAN CORPUSCULAR HGB CONC 29.8 g/dL (32.0-36.0); MEAN CORPUSCULAR VOLUME 94.8 fL (79-99); NEUTROPHILS % (AUTO) 66.1 % (40.0-77.0); PLATELET COUNT (AUTO) 135 K/uL (130-400); RED CELL DISTRIBUTION WIDTH 17.3 % (11.0-15.5); WHITE BLOOD COUNT (AUTO) 4.1 K/uL (4.8-10.8)
[2019-08-31 17:44] LABS: CREATININE 0.8 mg/dL (0.5-1.5); POTASSIUM 3.9 mmol/L (3.5-5.1)
[2019-08-31 17:49] LABS: BILIRUBIN,TOTAL 0.7 mg/dL (0.2-1.0); TOTAL PROTEIN, SERUM 6.8 g/dL (6.0-8.3)
[2019-08-31] MEDS ORDERED: ALBUTEROL SULFATE 0.083% 2.5 MG/3 ML INH IH ONE (17:57)
== END 2019-08-31 19:05 | disposition home or self-care (01) ==
LOC: EDH 16:32
DX: J20.9 Acute bronchitis, unspecified (principal)
CPT/HCPCS: 36415; 71046; 80053; 85025; 87804; 94640

== ENCOUNTER → 2019-09-08 | Outpatient (CLI) | payer OTHER ==
[~2019-09-08] MED LIST changes: +ALBUMIN (HUMAN) 25% 200 ML IV SCH; +BENZ-51 PO; +FURO40TA5 PO; +OSEL75 PO; +URSO500T10 PO
[2019-09-08 08:19] LABS: BASOPHILS % (AUTO) 0.3 % (0.0-5.0); EOSINOPHILS % (AUTO) 1.4 % (0.0-8.0); HEMATOCRIT 31.6 % (36-48); LYMPHOCYTES % (AUTO) 35.4 % (21.0-51.0); MEAN CORPUSCULAR HGB CONC 29.4 g/dL (32.0-36.0); MEAN CORPUSCULAR VOLUME 95.2 fL (79-99); MONOCYTES % (AUTO) 10.5 % (3.0-13.0); NEUTROPHILS % (AUTO) 52.2 % (40.0-77.0); PLATELET COUNT (AUTO) 148 K/uL (130-400); RED BLOOD CELL COUNT(AUTO) 3.32 MIL/uL (4.00-5.50); RED CELL DISTRIBUTION WIDTH 17.1 % (11.0-15.5); WHITE BLOOD COUNT (AUTO) 5.9 K/uL (4.8-10.8)
--- NOTE | 2019-09-08 08:40 | NUR ---
U/S GD PARACENTESIS ORDERED. NOT DONE ULTRASOUND OF THE ABDOMEN PERFORMED BY MARTHA JOHN. DR. PENNY VIEWED IMAGES AND NOTED PATIENT NOT TO HAVE ENOUGH FLUID TO SAFELY DO PROCEDURE. INFORMED PT/FAMILY OF RESULTS. PT DISCHARGED AMBULATORY STABLE, AAO X3 WITH NO C/O PAIN.
[2019-09-08 08:48] LABS: CREATININE 0.8 mg/dL (0.5-1.5); POTASSIUM 4.2 mmol/L (3.5-5.1)
[2019-09-08 08:51] LABS: INR 1.23 (0.85-1.15); PROTHROMBIN TIME 12.8 SEC (9.6-11.6)
[2019-09-08 08:54] LABS: ALBUMIN 2.6 g/dL (3.5-5.0); BILIRUBIN,TOTAL 1.3 mg/dL (0.2-1.0)
== END ==
LOC: RAH 07:54
PROVIDERS: ATTEND Internal Medicine Gastroenterology
DX: K70.31 Alcoholic cirrhosis of liver with ascites (principal); F32.9 Major depressive disorder, single episode, unspecified; Z79.01 Long term (current) use of anticoagulants; Z79.899 Other long term (current) drug therapy; Z87.891 Personal history of nicotine dependence; Z82.5 Family history of asthma and other chronic lower respiratory diseases
CPT/HCPCS: 36415; 76705; 80053; 85025; 85610; P9046; 49083

== ENCOUNTER → 2019-09-29 | Outpatient (CLI) | payer OTHER ==
[~2019-09-29] MED LIST changes: -ALBU8.5H8 IH; -APIX5TAB PO; -FAMO20TA8 PO; -FERR325T22 PO; -FURO20TA4 PO; -MIRT15TA6 PO; -SPIR100T5 PO
--- NOTE | 2019-09-29 10:30 | NUR ---
U/S GD PARACENTESIS ORDERED. NOT DONE ULTRASOUND OF THE ABDOMEN PERFORMED BY MARTHA ANDUJAR. DR. PENNY VIEWED IMAGES AND NOTED PATIENT NOT TO HAVE ENOUGH FLUID TO SAFELY DO PROCEDURE. INFORMED PT/FAMILY OF RESULTS. PT DISCHARGED AMBULATORY STABLE, AAO X3 WITH NO C/O PAIN.
== END | disposition home or self-care (01) ==
LOC: RAH 10:12
PROVIDERS: ATTEND Internal Medicine Gastroenterology
DX: R18.8 Other ascites (principal)
CPT/HCPCS: 76700; P9047

== ENCOUNTER → 2019-10-06 | Outpatient (CLI) | payer OTHER ==
[~2019-10-06] VITALS: Ht 142.2 cm; Wt 53.5 kg
[~2019-10-06] MED LIST changes: +ALBUMIN (HUMAN) 25% 200 ML IV PRN; -ALBUMIN (HUMAN) 25% 200 ML IV SCH
--- NOTE | 2019-10-06 10:30 | NUR ---
U/S GD PARACENTESIS ORDERED. NOT DONE ULTRASOUND OF THE COMPLETE ABDOMEN PERFORMED BY MARTHA OLVERA. DR. WEEMS VIEWED IMAGES AND NOTED PATIENT NOT TO HAVE ENOUGH FLUID TO SAFELY DO PROCEDURE. INFORMED PT/FAMILY OF RESULTS. PT DISCHARGED AMBULATORY, STABLE, AAO X3 WITH NO C/O PAIN.
== END | disposition home or self-care (01) ==
LOC: RAH 09:52
PROVIDERS: ATTEND Internal Medicine Gastroenterology
DX: R18.8 Other ascites (principal)
CPT/HCPCS: 76700

== ENCOUNTER → 2019-11-03 | Outpatient (CLI) | payer OTHER ==
[~2019-11-03] MED LIST changes: -ALBUMIN (HUMAN) 25% 200 ML IV PRN; -BENZ-51 PO; +CEPH500B PO; +FOLI1 PO; -FURO40TA5 PO; -LISI-617 PO; -OSEL75 PO; +THIA100T91 PO
--- NOTE | 2019-11-03 10:25 | NUR ---
US GUIDED PARACENTESIS ORDERED. NOT DONE US OF ALL 4 QUADRANTS OF THE ABDOMEN PERFORMED BY MARTHA BRANCH. DR. WEEMS REVIEWED THE IMAGES AND CONFIRMED, NOT ENOUGH FLUID TO SAFELY PERFORM PROCEDURE. INFORMED PT/FAMILY OF RESULTS. PT DISCHARGED HOME AMBULATORY, STABLE, AAO X 3, WITH NO C/O PAIN.
== END | disposition home or self-care (01) ==
LOC: RAH 09:29
PROVIDERS: ATTEND Internal Medicine Gastroenterology
DX: R18.8 Other ascites (principal)
CPT/HCPCS: 76705

== ENCOUNTER → 2019-11-17 | Outpatient (CLI) | payer OTHER ==
--- NOTE | 2019-11-17 09:40 | NUR ---
US GUIDED PARACENTESIS ORDERED. NOT DONE US OF ALL 4 QUADRANTS OF THE ABDOMEN PERFORMED BY MARTHA SOSA. DR. LAI REVIEWED THE IMAGES AND CONFIRMED, NOT ENOUGH FLUID TO SAFELY PERFORM PROCEDURE. INFORMED PT/FAMILY OF RESULTS. PT DISCHARGED HOME AMBULATORY, STABLE, AAO X 3, NO C/O PAIN.
== END | disposition home or self-care (01) ==
LOC: RAH 09:17
PROVIDERS: ATTEND Internal Medicine Gastroenterology
DX: R18.8 Other ascites (principal)
CPT/HCPCS: 76705

== ENCOUNTER → 2019-12-06 | Outpatient (CLI) | payer OTHER ==
[2019-12-06 10:34] LABS: MEAN CORPUSCULAR HEMOGLOBIN 30.7 pg (27.0-33.0); MEAN CORPUSCULAR HGB CONC 31.5 g/dL (32.0-36.0); MEAN CORPUSCULAR VOLUME 97.4 fL (79-99); PLATELET COUNT (AUTO) 89 K/uL (130-400); RED BLOOD CELL COUNT(AUTO) 3.49 MIL/uL (4.00-5.50); RED CELL DISTRIBUTION WIDTH 17.2 % (11.0-15.5); WHITE BLOOD COUNT (AUTO) 3.7 K/uL (4.8-10.8)
[2019-12-06 10:49] LABS: INR 1.06 (0.85-1.15); PROTHROMBIN TIME 11.4 SEC (9.6-11.6)
[2019-12-06 10:50] LABS: ALBUMIN 2.6 g/dL (3.5-5.0); BILIRUBIN,TOTAL 0.6 mg/dL (0.2-1.0); CREATININE 0.9 mg/dL (0.5-1.5); POTASSIUM 4.7 mmol/L (3.5-5.1); TOTAL PROTEIN, SERUM 7.1 g/dL (6.0-8.3)
[2019-12-06 11:08] LABS: BASOPHILS % (MANUAL) 1 % (0-2); EOSINOPHILS % (MANUAL) 1 % (1-6); LYMPHOCYTES % (MANUAL) 28 % (22-44); MONOCYTES % (MANUAL) 8 % (2-9); SEGMENTED NEUTROPHILS % 62 % (40-70)
[2019-12-06 11:09] LABS: MAN.DIFF COMMENT-IMPRESSION MANUAL DIFFERENTIAL; PLATELET MORPHOLOGY COMMENT DECREASED
--- NOTE | 2019-12-06 11:15 | NUR ---
US GUIDED PARACENTESIS ORDERED. NOT DONE US OF ALL 4 QUADRANTS OF THE ABDOMEN PERFORMED BY MARTHA OLVERA. DR. WEEMS REVIEWED THE IMAGES AND CONFIRMED, NOT ENOUGH FLUID TO SAFELY PERFORM PROCEDURE. INFORMED PT/FAMILY OF RESULTS. PT DISCHARGED HOME AMBULATORY, STABLE, AAO X 3, NO C/O PAIN.
== END | disposition home or self-care (01) ==
LOC: RAH 09:52
PROVIDERS: ATTEND Internal Medicine Gastroenterology
DX: R18.8 Other ascites (principal)
CPT/HCPCS: 36415; 76705; 80053; 85025; 85610

== ENCOUNTER → 2019-12-27 | Outpatient (CLI) | payer OTHER ==
[~2019-12-27] MED LIST changes: +ALBUMIN (HUMAN) 25% 200 ML IV SCH
--- NOTE | 2019-12-27 10:10 | NUR ---
US GUIDED PARACENTESIS ORDERED. NOT DONE US OF ALL 4 QUADRANTS OF THE ABDOMEN PERFORMED BY MARTHA OLVERA. DR. PENNY REVIEWED THE IMAGES AND CONFIRMED, NOT ENOUGH FLUID TO SAFELY PERFORM PROCEDURE. INFORMED PT/FAMILY OF RESULTS. PT DISCHARGED HOME VIA W/C, STABLE, AAO X 3, NO C/O PAIN.
== END | disposition home or self-care (01) ==
LOC: RAH 09:44
PROVIDERS: ATTEND Internal Medicine Gastroenterology
DX: R18.8 Other ascites (principal)
CPT/HCPCS: 76705; P9046

== ENCOUNTER 2019-12-29 06:19 | Inpatient (IN) | payer OTHER ==
[~2019-12-29] VITALS: Ht 149.9 cm; Wt 54.2 kg
[~2019-12-29 06:19] MED LIST changes: -ALBUMIN (HUMAN) 25% 200 ML IV SCH
[2019-12-29 06:42] LABS: BASOPHILS % (AUTO) 0.8 % (0.0-5.0); EOSINOPHILS % (AUTO) 2.1 % (0.0-8.0); HEMATOCRIT 43.2 % (36-48); LYMPHOCYTES % (AUTO) 36.5 % (21.0-51.0); MEAN CORPUSCULAR HEMOGLOBIN 31.3 pg (27.0-33.0); MEAN CORPUSCULAR HGB CONC 33.8 g/dL (32.0-36.0); MEAN CORPUSCULAR VOLUME 92.5 fL (79-99); MONOCYTES % (AUTO) 8.6 % (3.0-13.0); NEUTROPHILS % (AUTO) 51.8 % (40.0-77.0); PLATELET COUNT (AUTO) 115 K/uL (130-400); RED BLOOD CELL COUNT(AUTO) 4.67 MIL/uL (4.00-5.50); RED CELL DISTRIBUTION WIDTH 14.6 % (11.0-15.5); WHITE BLOOD COUNT (AUTO) 5.2 K/uL (4.8-10.8)
[2019-12-29] MEDS ORDERED: LACTULOSE 20 GM/30 ML UDCUP ONE (06:49)
[2019-12-29 07:09] LABS: INR 1.05 (0.85-1.15); PARTIAL THROMBOPLASTIN TIME 28.5 SEC (26.3-35.5); PROTHROMBIN TIME 11.3 SEC (9.6-11.6)
[2019-12-29 07:15] LABS: ALBUMIN 3.1 g/dL (3.5-5.0); BILIRUBIN,TOTAL 0.9 mg/dL (0.2-1.0); CREATININE 1.5 mg/dL (0.5-1.5); TOTAL PROTEIN, SERUM 8.2 g/dL (6.0-8.3)
[2019-12-29 10:00] VITALS: BP 101/61
[2019-12-29] MEDS ORDERED: ACETAMINOPHEN 325 MG TAB PO PRN (13:15)
[2019-12-29] MEDS ORDERED: ZOLPIDEM TARTRATE 5 MG TAB PO PRN (13:15)
[2019-12-29] MEDS ORDERED: DiphenhydrAMINE HCL 50 MG/ML VIAL IV PRN (13:15)
[2019-12-29] MEDS ORDERED: ONDANSETRON HCL 4 MG/2 ML VIAL IV PRN (13:15)
[2019-12-29] MEDS ORDERED: DIPHENHYDRAMINE HCL 25 MG CAPSULE PO PRN (13:15)
[2019-12-29] MEDS ORDERED: MORPHINE SULFATE 2 MG/ML 1ML SYG IV PRN (13:15)
[2019-12-29] MEDS ORDERED: HYDRALAZINE HCL 20 MG/ML VIAL IV PRN (13:15)
[2019-12-29] MEDS ORDERED: THIAMINE HCL 100 MG TABLET PO SCH (14:03)
[2019-12-29] MEDS ORDERED: FOLIC ACID 1 MG TABLET PO SCH (14:03)
[2019-12-29 16:21] VITALS: BP 113/77
[2019-12-29] MEDS: LACTULOSE 20 GM/30 ML UDCUP PO SCH ×2 (17:13→19:49)
[2019-12-29 19:00] VITALS: BP 98/68
--- NOTE | 2019-12-29 19:22 | NUR ---
FAMILY AWARE TO BRING HOME MEDS OLD MEDS IN MED REC COMPUTER STATES THOSE MEDS ARE THE SAME. BUT INFORM TO BRING LABELS TO VARIFY.
[2019-12-29] MEDS: ZOSYN 3.375GM+NS 50ML 50 ML IV SCH (20:17)
[2019-12-30] VITALS: BP 113/73
[2019-12-30 00:26] LABS: APPEARANCE,URINE Clear (CLEAR); BILIRUBIN,URINE Negative (NEGATIVE); COLOR,URINE Yellow (YELLOW); GLUCOSE, URINE (UA) Negative (NEGATIVE); KETONES,URINE Trace mg/dL (NEGATIVE); LEUKOCYTE ESTERASE ,URINE Negative (NEGATIVE); NITRATE,URINE Negative (NEGATIVE); OCCULT BLOOD,URINE Negative (NEGATIVE); PH,URINE 5.5 (5.0-8.0); PROTEIN,URINE Negative (NEGATIVE)
[2019-12-30 00:32] LABS: BACTERIA,URINE None Seen /HPF (None Seen); RBC,URINE None Seen /HPF (0-1); SQUAMOUS EPITHELIAL CELL,UR Moderate /HPF (0-2); WBC,URINE None Seen /HPF (0-1)
[2019-12-30 04:00] VITALS: BP 114/53
[2019-12-30] MEDS: ZOSYN 3.375GM+NS 50ML 50 ML IV SCH ×3 (05:14→20:48)
[2019-12-30 05:38] LABS: BASOPHILS % (AUTO) 0.3 % (0.0-5.0); EOSINOPHILS % (AUTO) 1.2 % (0.0-8.0); HEMATOCRIT 35.6 % (36-48); LYMPHOCYTES % (AUTO) 24.2 % (21.0-51.0); MEAN CORPUSCULAR HEMOGLOBIN 31.5 pg (27.0-33.0); MEAN CORPUSCULAR HGB CONC 33.7 g/dL (32.0-36.0); MEAN CORPUSCULAR VOLUME 93.4 fL (79-99); MONOCYTES % (AUTO) 12.6 % (3.0-13.0); NEUTROPHILS % (AUTO) 61.4 % (40.0-77.0); PLATELET COUNT (AUTO) 91 K/uL (130-400); RED BLOOD CELL COUNT(AUTO) 3.81 MIL/uL (4.00-5.50); RED CELL DISTRIBUTION WIDTH 14.1 % (11.0-15.5); WHITE BLOOD COUNT (AUTO) 6.4 K/uL (4.8-10.8)
[2019-12-30 05:51] LABS: ALBUMIN 2.8 g/dL (3.5-5.0); MAGNESIUM 2.1 mg/dL (1.80-2.40); PHOSPHORUS 3.4 mg/dL (2.5-4.9); POTASSIUM 3.9 mmol/L (3.5-5.1); TOTAL PROTEIN, SERUM 7.2 g/dL (6.0-8.3)
[2019-12-30 05:59] LABS: B-TYPE NATRIURETIC PEPTIDE 17 pg/mL (0-100)
[2019-12-30 08:00] VITALS: BP 99/60
[2019-12-30] MEDS: LACTULOSE 20 GM/30 ML UDCUP PO SCH ×3 (09:33→20:47)
[2019-12-30 11:49] VITALS: BP 100/65
[2019-12-30] MEDS ORDERED: RIFAXIMIN 200 MG TABLET PO SCH (13:00)
[2019-12-30] MEDS: SODIUM CHLORIDE 0.9% 1000ML 1,000 ML IV SCH (13:17)
[2019-12-30 16:00] VITALS: BP_SYST 101; BP_SYST 115; BP_SYST 96; BP_DIAS 57; BP_DIAS 60
--- NOTE | 2019-12-30 17:14 | NUR ---
cm note call made to pt and and requests I speak to her boyfriend/life partner cecille deras . call made to cecille states pt resides at home with boyfriend/life partner cecille deras, he states pt has a son wilbert that is provider for pt and assist 2-3 1/2 hrs daily. pt uses cane and walker for ambulation at home as needed. dc plan is back home at time of dc. Addendum: 12/30/19 at 1720 by CAMRYN TIPTON CM Amended: Links added.
[2019-12-30 19:52] VITALS: BP 108/62
[2019-12-30] MEDS: RIFAXIMIN 550 MG TABLET PO SCH (20:48)
[2019-12-31] VITALS (8 sets, daily range): BP systolic 91–126; BP diastolic 51–70
[2019-12-31] MEDS: ZOSYN 3.375GM+NS 50ML 50 ML IV SCH ×3 (03:50→20:50)
[2019-12-31 05:33] LABS: BASOPHILS % (AUTO) 0.6 % (0.0-5.0); EOSINOPHILS % (AUTO) 2.1 % (0.0-8.0); HEMATOCRIT 33.2 % (36-48); LYMPHOCYTES % (AUTO) 32.3 % (21.0-51.0); MEAN CORPUSCULAR HEMOGLOBIN 31.5 pg (27.0-33.0); MEAN CORPUSCULAR HGB CONC 33.4 g/dL (32.0-36.0); MEAN CORPUSCULAR VOLUME 94.3 fL (79-99); MONOCYTES % (AUTO) 11.6 % (3.0-13.0); NEUTROPHILS % (AUTO) 53.2 % (40.0-77.0); PLATELET COUNT (AUTO) 80 K/uL (130-400); RED BLOOD CELL COUNT(AUTO) 3.52 MIL/uL (4.00-5.50); RED CELL DISTRIBUTION WIDTH 14.2 % (11.0-15.5); WHITE BLOOD COUNT (AUTO) 4.7 K/uL (4.8-10.8)
[2019-12-31 05:54] LABS: ALBUMIN 2.4 g/dL (3.5-5.0); MAGNESIUM 2.9 mg/dL (1.80-2.40); PHOSPHORUS 3.2 mg/dL (2.5-4.9); TOTAL PROTEIN, SERUM 6.5 g/dL (6.0-8.3)
[2019-12-31] MEDS: SODIUM CHLORIDE 0.9% 1000ML 1,000 ML IV SCH (06:26)
[2019-12-31] MEDS: RIFAXIMIN 550 MG TABLET PO SCH ×2 (09:04→20:50)
[2019-12-31] MEDS: LACTULOSE 20 GM/30 ML UDCUP PO SCH ×3 (09:04→20:50)
[2019-12-31] MEDS: FAMOTIDINE/PF 20 MG/2 ML VIAL IV SCH (13:06)
[2020-01-01 03:20] VITALS: BP_SYST 126; BP_SYST 97; BP_DIAS 59; BP_DIAS 70
[2020-01-01] MEDS: ZOSYN 3.375GM+NS 50ML 50 ML IV SCH ×2 (04:17→13:00)
[2020-01-01 04:38] LABS: HEMATOCRIT 32.8 % (36-48); MEAN CORPUSCULAR HEMOGLOBIN 31.1 pg (27.0-33.0); MEAN CORPUSCULAR HGB CONC 33.2 g/dL (32.0-36.0); MEAN CORPUSCULAR VOLUME 93.7 fL (79-99); PLATELET COUNT (AUTO) 70 K/uL (130-400); RED CELL DISTRIBUTION WIDTH 14.2 % (11.0-15.5); WHITE BLOOD COUNT (AUTO) 4.2 K/uL (4.8-10.8)
[2020-01-01 05:08] LABS: POTASSIUM 4.7 mmol/L (3.5-5.1)
[2020-01-01 08:35] VITALS: BP 109/63
[2020-01-01] MEDS: LACTULOSE 20 GM/30 ML UDCUP PO SCH (10:02)
[2020-01-01] MEDS: FAMOTIDINE/PF 20 MG/2 ML VIAL IV SCH (10:02)
[2020-01-01] MEDS: RIFAXIMIN 550 MG TABLET PO SCH (10:02)
[2020-01-01 11:21] VITALS: BP_SYST 106; BP_SYST 121; BP_DIAS 65; BP_DIAS 72
--- NOTE | 2020-01-01 12:00 | NUR ---
[id number] patient signed IM Letter, I faxed IM Letter to [phone] and placed in chart under consent tab
== END 2020-01-01 12:40 | disposition home or self-care (01) | DRG 441 ==
LOC: EDH 06:19 → OBSVTOIN 09:00 → EDHIP 09:00 → 3CH 10:03
PROVIDERS: ADMIT Internal Medicine; ATTEND Internal Medicine
DX: K72.00 Acute and subacute hepatic failure without coma (principal); E43 Unspecified severe protein-calorie malnutrition; E87.1 Hypo-osmolality and hyponatremia; E72.20 Disorder of urea cycle metabolism, unspecified; K70.30 Alcoholic cirrhosis of liver without ascites; E11.9 Type 2 diabetes mellitus without complications; I10 Essential (primary) hypertension; D69.6 Thrombocytopenia, unspecified; Z79.4 Long term (current) use of insulin; E86.0 Dehydration; Z68.24 Body mass index [BMI] 24.0-24.9, adult; Z98.891 History of uterine scar from previous surgery
CPT/HCPCS: 36415; 70450; 76705; 80048; 80053; 81001; 82140; 82550; 82948; 83735; 83880; 84100; 84484; 85025; 85027; 85610; 85730; 93005; 97039; G0378; J2543; J3490; J7030; P9046

== ENCOUNTER 2020-01-13 12:36 | Emergency (ER) | payer OTHER ==
[~2020-01-13 12:36] MED LIST changes: -CEPH500B PO
[2020-01-13 13:05] LABS: BASOPHILS % (AUTO) 0.5 % (0.0-5.0); EOSINOPHILS % (AUTO) 2.9 % (0.0-8.0); LYMPHOCYTES % (AUTO) 27.7 % (21.0-51.0); MEAN CORPUSCULAR HEMOGLOBIN 31.1 pg (27.0-33.0); MEAN CORPUSCULAR HGB CONC 33.4 g/dL (32.0-36.0); MEAN CORPUSCULAR VOLUME 93.1 fL (79-99); MONOCYTES % (AUTO) 8.4 % (3.0-13.0); NEUTROPHILS % (AUTO) 60.2 % (40.0-77.0); PLATELET COUNT (AUTO) 104 K/uL (130-400); RED BLOOD CELL COUNT(AUTO) 4.08 MIL/uL (4.00-5.50); RED CELL DISTRIBUTION WIDTH 14.1 % (11.0-15.5); WHITE BLOOD COUNT (AUTO) 3.8 K/uL (4.8-10.8)
[2020-01-13 13:20] LABS: INR 1.02 (0.85-1.15); PARTIAL THROMBOPLASTIN TIME 28.2 SEC (26.3-35.5)
[2020-01-13 13:23] LABS: ALBUMIN 3.1 g/dL (3.5-5.0); TOTAL PROTEIN, SERUM 7.9 g/dL (6.0-8.3)
[2020-01-13 13:39] LABS: APPEARANCE,URINE Clear (CLEAR); BILIRUBIN,URINE Negative (NEGATIVE); COLOR,URINE Yellow (YELLOW); GLUCOSE, URINE (UA) Negative (NEGATIVE); KETONES,URINE Negative (NEGATIVE); LEUKOCYTE ESTERASE ,URINE Small (NEGATIVE); NITRATE,URINE Negative (NEGATIVE); OCCULT BLOOD,URINE Negative (NEGATIVE); PH,URINE 7.5 (5.0-8.0); PROTEIN,URINE Negative (NEGATIVE)
[2020-01-13 13:56] LABS: BACTERIA,URINE Moderate /HPF (None Seen)
[2020-01-13 13:57] LABS: RBC,URINE None Seen /HPF (0-1)
== END 2020-01-13 15:13 | disposition home or self-care (01) ==
LOC: EDH 12:36
DX: K74.60 Unspecified cirrhosis of liver (principal); R53.1 Weakness; R63.0 Anorexia; E11.9 Type 2 diabetes mellitus without complications; I10 Essential (primary) hypertension; Z98.890 Other specified postprocedural states
CPT/HCPCS: 36415; 71045; 80053; 81001; 82140; 82550; 84484; 85025; 85610; 85730; 87088; 93005

== ENCOUNTER 2020-01-22 14:10 | Emergency (ER) | payer OTHER ==
[2020-01-22 15:05] LABS: BASOPHILS % (AUTO) 0.6 % (0.0-5.0); EOSINOPHILS % (AUTO) 1.4 % (0.0-8.0); HEMATOCRIT 38.5 % (36-48); LYMPHOCYTES % (AUTO) 29.1 % (21.0-51.0); MEAN CORPUSCULAR HEMOGLOBIN 31.6 pg (27.0-33.0); MEAN CORPUSCULAR HGB CONC 34.3 g/dL (32.0-36.0); MEAN CORPUSCULAR VOLUME 92.1 fL (79-99); MONOCYTES % (AUTO) 11.7 % (3.0-13.0); NEUTROPHILS % (AUTO) 56.9 % (40.0-77.0); PLATELET COUNT (AUTO) 114 K/uL (130-400); RED BLOOD CELL COUNT(AUTO) 4.18 MIL/uL (4.00-5.50); WHITE BLOOD COUNT (AUTO) 6.4 K/uL (4.8-10.8)
[2020-01-22 15:22] LABS: CREATININE 1.2 mg/dL (0.5-1.5); POTASSIUM 5.1 mmol/L (3.5-5.1)
[2020-01-22 15:27] LABS: ALBUMIN 3.2 g/dL (3.5-5.0); BILIRUBIN,TOTAL 0.9 mg/dL (0.2-1.0); TOTAL PROTEIN, SERUM 8.1 g/dL (6.0-8.3)
[2020-01-22 15:29] LABS: CREATINE KINASE, TOTAL 33 U/L (21-232); LIPASE 387 U/L (114-286)
== END 2020-01-22 16:56 | disposition home or self-care (01) ==
LOC: EDH 14:10
DX: R53.1 Weakness (principal); K74.60 Unspecified cirrhosis of liver; E11.9 Type 2 diabetes mellitus without complications; I10 Essential (primary) hypertension; Z98.890 Other specified postprocedural states
CPT/HCPCS: 36415; 70450; 71045; 80053; 82140; 82550; 83690; 84484; 85025; 93005

== ENCOUNTER 2020-01-24 18:05 | Inpatient (IN) | payer OTHER ==
[~2020-01-24] VITALS: Ht 149.9 cm; Wt 58.7 kg
[2020-01-24 18:59] LABS: BASOPHILS % (AUTO) 0.4 % (0.0-5.0); EOSINOPHILS % (AUTO) 1.1 % (0.0-8.0); LYMPHOCYTES % (AUTO) 24.4 % (21.0-51.0); MEAN CORPUSCULAR HEMOGLOBIN 30.6 pg (27.0-33.0); MEAN CORPUSCULAR HGB CONC 33.4 g/dL (32.0-36.0); MEAN CORPUSCULAR VOLUME 91.6 fL (79-99); MONOCYTES % (AUTO) 8.1 % (3.0-13.0); NEUTROPHILS % (AUTO) 65.6 % (40.0-77.0); PLATELET COUNT (AUTO) 84 K/uL (130-400); RED BLOOD CELL COUNT(AUTO) 3.82 MIL/uL (4.00-5.50); WHITE BLOOD COUNT (AUTO) 4.7 K/uL (4.8-10.8)
[2020-01-24 19:19] LABS: APPEARANCE,URINE Clear (CLEAR); BILIRUBIN,URINE Negative (NEGATIVE); COLOR,URINE Yellow (YELLOW); GLUCOSE, URINE (UA) Negative (NEGATIVE); KETONES,URINE Negative (NEGATIVE); LEUKOCYTE ESTERASE ,URINE Negative (NEGATIVE); NITRATE,URINE Negative (NEGATIVE); OCCULT BLOOD,URINE Negative (NEGATIVE); PROTEIN,URINE Negative (NEGATIVE)
[2020-01-24 19:22] LABS: INR 1.05 (0.85-1.15); PARTIAL THROMBOPLASTIN TIME 27.8 SEC (26.3-35.5); PROTHROMBIN TIME 11.3 SEC (9.6-11.6)
[2020-01-24 19:30] LABS: CREATININE 1.3 mg/dL (0.5-1.5); POTASSIUM 4.2 mmol/L (3.5-5.1)
[2020-01-24 19:33] LABS: ALBUMIN 3.1 g/dL (3.5-5.0); BILIRUBIN,TOTAL 0.4 mg/dL (0.2-1.0); TOTAL PROTEIN, SERUM 7.4 g/dL (6.0-8.3)
[2020-01-24 19:37] LABS: B-TYPE NATRIURETIC PEPTIDE 22 pg/mL (0-100)
[2020-01-24] MEDS ORDERED: LACTULOSE 20 GM/30 ML UDCUP ONE (20:35)
[2020-01-24] MEDS ORDERED: HYDROCODONE/ACETAMINOPHEN 5/325 MG TAB ONE (21:36)
[2020-01-24] MEDS ORDERED: HYDROCODONE/ACETAMINOPHEN 5/325 MG TAB PO PRN (21:45)
[2020-01-24] MEDS: SODIUM CHLORIDE 0.9% 1000ML 1,000 ML IV SCH (21:45)
[2020-01-24] MEDS ORDERED: ZOSYN 3.375GM+NS 50ML 50 ML IV ONE (21:49)
[2020-01-24] MEDS: ZOSYN 3.375GM+NS 50ML 50 ML IV SCH (22:00)
[2020-01-24 22:45] VITALS: BP 113/66
[2020-01-24] MEDS ORDERED: GLUCAGON 1MG KIT 1 MG ML IM PRN (23:00)
[2020-01-24] MEDS ORDERED: DEXTROSE 50%-WATER 50 ML DISP.SYRIN IV PRN (23:00)
[2020-01-24] MEDS ORDERED: CEPH500C2 PO (23:22)
[2020-01-24] MEDS ORDERED: FURO40TA5 PO (23:22)
[2020-01-24] MEDS ORDERED: SPIR100T5 PO (23:22)
[2020-01-25 03:56] VITALS: BP 118/67
[2020-01-25 04:13] LABS: HEMATOCRIT 30.7 % (36-48); MEAN CORPUSCULAR HGB CONC 33.9 g/dL (32.0-36.0); MEAN CORPUSCULAR VOLUME 91.6 fL (79-99); RED BLOOD CELL COUNT(AUTO) 3.35 MIL/uL (4.00-5.50); RED CELL DISTRIBUTION WIDTH 13.5 % (11.0-15.5)
[2020-01-25 04:44] LABS: ALBUMIN 2.5 g/dL (3.5-5.0); BILIRUBIN,TOTAL 0.8 mg/dL (0.2-1.0); CREATININE 1.1 mg/dL (0.5-1.5); POTASSIUM 4.3 mmol/L (3.5-5.1); TOTAL PROTEIN, SERUM 6.3 g/dL (6.0-8.3)
[2020-01-25] MEDS: ZOSYN 3.375GM+NS 50ML 50 ML IV SCH ×3 (04:59→21:37)
[2020-01-25] MEDS: INSULIN R PO SS1 SQ SCH ×4 (07:01→21:00)
[2020-01-25 08:13] VITALS: BP 108/66
[2020-01-25] MEDS: LACTULOSE 20 GM/30 ML UDCUP PO SCH ×2 (08:59→21:36)
[2020-01-25] MEDS: THIAMINE HCL 100 MG TABLET PO SCH (09:00)
[2020-01-25] MEDS ORDERED: FUROSEMIDE 40 MG TABLET PO SCH (09:00)
[2020-01-25] MEDS: FOLIC ACID 1 MG TABLET PO SCH (09:00)
[2020-01-25] MEDS ORDERED: SPIRONOLACTONE 25 MG TAB PO SCH (09:00)
--- NOTE | 2020-01-25 11:38 | NUR ---
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 ADVISED HIM THAT THERE WAS A SNF REFERRAL BUT PATIENT HAD DECLINED [facility] STATES HAS WALKER, WHEELCHAIR, CANE SHOWER CHAIR AND PROVIDER SERVICE ABOUT 25 HRS PER WEEK, HOME IS SAFE AND ACCESSIBLE. CONCERNS RE WEAKNESS AND MALNUTRITION WILL ENTER NUTRITION ASSESSMENT AND PT EVAL Addendum: 01/25/20 at 1151 by ADELE BARNES RN CM Amended: Links added.
[2020-01-25 12:30] VITALS: BP 108/63
--- NOTE | 2020-01-25 14:08 | NUR ---
RD NOTIFICATION Pt admitted with hepatic encephalopathy. Hx Cirrhosis, poor po, as per CM. Pt with Clear Liquid diet order at this time. When medically feasible recommend advance diet as tolerated to Heart healthy, Low Fat, 6 small meals diet order. Once diet advanced, Recommend Glucerna TID. At this time, recommend 30mL Promod TID. RD to continue to monitor. Please notify RD as additional nutrition concerns arise. Thank you. Addendum: 01/25/20 at [address] RD Amended: Links added.
[2020-01-25 14:16] LABS: CREATININE,URINE RANDOM 81 mg/dL (30-135); POTASSIUM,URINE RANDOM 36 mmol/L (25-125); SODIUM,URINE RANDOM 76 mmol/l (40-220)
[2020-01-25 17:02] VITALS: BP 106/62
[2020-01-25] MEDS ORDERED: POTASSIUM CHLORIDE 10% ELIXIR 20 MEQ/15 ML UDCUP PO PRN (17:45)
[2020-01-25] MEDS ORDERED: POTASSIUM CHLORIDE 20MEQ/100ML 100 ML IV PRN ×2 (17:45)
[2020-01-25] MEDS ORDERED: LIDOCAINE HCL-MPF 1% 2ML VIAL IJ PRN (17:45)
[2020-01-25] MEDS ORDERED: MAGNESIUM 2GM PREMIX 50ML 50 ML IV PRN (17:45)
[2020-01-25] MEDS ORDERED: LIDOCAINE HCL-MPF 1% 2ML VIAL IV PRN (17:45)
[2020-01-25] MEDS ORDERED: POTASSIUM CHLORIDE 20 MEQ ERTAB PO PRN (17:45)
[2020-01-25] MEDS ORDERED: ONDANSETRON HCL 4 MG/2 ML VIAL IVP PRN (17:45)
[2020-01-25] MEDS: SODIUM CHLORIDE 0.9% 1000ML 1,000 ML IV SCH (18:24)
[2020-01-25 19:58] VITALS: BP 95/74
[2020-01-25] MEDS: SODIUM CHLORIDE 1,000 MG TAB PO SCH (21:36)
[2020-01-25 23:53] VITALS: BP 110/62
[2020-01-26 04:00] VITALS: BP 94/48
[2020-01-26 04:27] LABS: BASOPHILS % (AUTO) 0.5 % (0.0-5.0); EOSINOPHILS % (AUTO) 2.6 % (0.0-8.0); LYMPHOCYTES % (AUTO) 28.8 % (21.0-51.0); MEAN CORPUSCULAR HEMOGLOBIN 31.5 pg (27.0-33.0); MEAN CORPUSCULAR HGB CONC 33.7 g/dL (32.0-36.0); MEAN CORPUSCULAR VOLUME 93.3 fL (79-99); MONOCYTES % (AUTO) 7.8 % (3.0-13.0); NEUTROPHILS % (AUTO) 60.1 % (40.0-77.0); PLATELET COUNT (AUTO) 76 K/uL (130-400); RED BLOOD CELL COUNT(AUTO) 3.75 MIL/uL (4.00-5.50); RED CELL DISTRIBUTION WIDTH 13.7 % (11.0-15.5); WHITE BLOOD COUNT (AUTO) 4.2 K/uL (4.8-10.8)
[2020-01-26 04:29] LABS: AMPHET/METH SCREEN,URINE NEGATIVE (NEGATIVE); BARBITURATE SCREEN, URINE NEGATIVE (NEGATIVE); BENZODIAZEPINES SCREEN,URINE NEGATIVE (NEGATIVE); CANNABINOID SCREEN,URINE NEGATIVE (NEGATIVE); COCAINE SCREEN,URINE NEGATIVE (NEGATIVE); OPIATE SCREEN,URINE NEGATIVE (NEGATIVE); PHENCYCLIDINE SCREEN,URINE NEGATIVE (NEGATIVE)
[2020-01-26 04:51] LABS: B-TYPE NATRIURETIC PEPTIDE 87 pg/mL (0-100)
[2020-01-26 05:02] LABS: ALBUMIN 2.8 g/dL (3.5-5.0); BILIRUBIN,DIRECT 0.5 mg/dL (0.0-0.3); BILIRUBIN,TOTAL 1.3 mg/dL (0.2-1.0); MAGNESIUM 1.8 mg/dL (1.80-2.40); PHOSPHORUS 3.1 mg/dL (2.5-4.9); POTASSIUM 4.7 mmol/L (3.5-5.1); TOTAL PROTEIN, SERUM 6.8 g/dL (6.0-8.3)
[2020-01-26] MEDS: ZOSYN 3.375GM+NS 50ML 50 ML IV SCH ×3 (06:13→23:43)
[2020-01-26 07:30] VITALS: BP 91/44
[2020-01-26] MEDS: INSULIN R PO SS1 SQ SCH ×4 (07:30→21:00)
[2020-01-26] MEDS: FOLIC ACID 1 MG TABLET PO SCH (09:14)
[2020-01-26] MEDS: SODIUM CHLORIDE 1,000 MG TAB PO SCH ×3 (09:14→21:23)
[2020-01-26] MEDS: SODIUM CHLORIDE 0.9% 1000ML 1,000 ML IV SCH ×2 (09:14→21:23)
[2020-01-26] MEDS: THIAMINE HCL 100 MG TABLET PO SCH (09:14)
[2020-01-26] MEDS: LACTULOSE 20 GM/30 ML UDCUP PO SCH ×2 (09:14→21:23)
[2020-01-26 16:00] VITALS: BP 114/61
[2020-01-26 19:00] VITALS: BP 97/58
[2020-01-27] VITALS: BP 101/55
[2020-01-27 03:42] VITALS: BP 96/50
[2020-01-27 05:35] LABS: BASOPHILS % (AUTO) 0.6 % (0.0-5.0); EOSINOPHILS % (AUTO) 2.8 % (0.0-8.0); HEMATOCRIT 30.3 % (36-48); LYMPHOCYTES % (AUTO) 36.4 % (21.0-51.0); MEAN CORPUSCULAR HEMOGLOBIN 31.6 pg (27.0-33.0); MEAN CORPUSCULAR VOLUME 92.9 fL (79-99); MONOCYTES % (AUTO) 11.7 % (3.0-13.0); NEUTROPHILS % (AUTO) 48.2 % (40.0-77.0); PLATELET COUNT (AUTO) 61 K/uL (130-400); RED BLOOD CELL COUNT(AUTO) 3.26 MIL/uL (4.00-5.50); RED CELL DISTRIBUTION WIDTH 13.6 % (11.0-15.5); WHITE BLOOD COUNT (AUTO) 3.2 K/uL (4.8-10.8)
[2020-01-27 05:50] LABS: CREATININE 0.9 mg/dL (0.5-1.5); MAGNESIUM 1.8 mg/dL (1.80-2.40); POTASSIUM 4.3 mmol/L (3.5-5.1)
[2020-01-27] MEDS: INSULIN R PO SS1 SQ SCH ×2 (06:37→11:30)
[2020-01-27] MEDS: ZOSYN 3.375GM+NS 50ML 50 ML IV SCH (06:37)
[2020-01-27 07:30] VITALS: BP 97/54
[2020-01-27] MEDS: LACTULOSE 20 GM/30 ML UDCUP PO SCH (08:10)
[2020-01-27] MEDS: SODIUM CHLORIDE 1,000 MG TAB PO SCH (08:10)
[2020-01-27] MEDS: THIAMINE HCL 100 MG TABLET PO SCH (08:10)
[2020-01-27] MEDS: FOLIC ACID 1 MG TABLET PO SCH (08:11)
[2020-01-27] MEDS: SODIUM CHLORIDE 0.9% 1000ML 1,000 ML IV SCH (08:11)
[2020-01-27 11:00] VITALS: BP 97/51
--- NOTE | 2020-01-27 13:29 | NUR ---
PATIENT DISCHARGE PATIENT DISCHARGED, IV DISCONTINUED, CATHLON INTACT, BLEEDING CONTROLLED, PATIENT TOLERATED WITHOUT INCIDENT. TELE REMOVED AND RETURNED.
== END 2020-01-27 14:00 | disposition home or self-care (01) | DRG 438 ==
LOC: EDH 18:05 → EDHIP 21:28 → 3DH 21:50
PROVIDERS: ADMIT Internal Medicine; ATTEND Internal Medicine
DX: K85.90 Acute pancreatitis without necrosis or infection, unspecified (principal); K72.00 Acute and subacute hepatic failure without coma; E87.1 Hypo-osmolality and hyponatremia; K76.6 Portal hypertension; D68.4 Acquired coagulation factor deficiency; K70.30 Alcoholic cirrhosis of liver without ascites; E86.1 Hypovolemia; E11.9 Type 2 diabetes mellitus without complications; D69.6 Thrombocytopenia, unspecified; D64.9 Anemia, unspecified; E86.0 Dehydration; I10 Essential (primary) hypertension; K80.20 Calculus of gallbladder without cholecystitis without obstruction; Z79.4 Long term (current) use of insulin; Z91.19 Patient's noncompliance with other medical treatment and regimen
CPT/HCPCS: 36415; 70450; 71045; 74176; 76705; 80048; 80053; 80061; 80305; 81003; 82140; 82150; 82247; 82248; 82550; 82570; 82948; 83605; 83690; 83735; 83880; 83930; 83935; 84100; 84133; 84295; 84300; 84484; 85025; 85027; 85610; 85730; 87040; 93005; 97039; G0378; G0480; J1815; J2543; J7070

== ENCOUNTER → 2020-02-07 | Outpatient (CLI) | payer OTHER ==
[~2020-02-07] MED LIST changes: +FURO40TA5 PO; +SPIR100T5 PO; -URSO500T10 PO
--- NOTE | 2020-02-07 11:00 | NUR ---
US GUIDED PARACENTESIS ORDERED. NOT DONE US OF ALL 4 QUADRANTS OF THE ABDOMEN PERFORMED BY MARTHA SOSA. DR. TAFOYA REVIEWED THE IMAGES AND CONFIRMED, NOT ENOUGH FLUID TO SAFELY PERFORM PROCEDURE. INFORMED PT OF RESULTS. PT DISCHARGED HOME VIA W/C, STABLE, AAO X 3, NO C/O PAIN.
== END | disposition home or self-care (01) ==
LOC: RAH 09:31
PROVIDERS: ATTEND Internal Medicine Gastroenterology
DX: R18.8 Other ascites (principal)
CPT/HCPCS: 76705

== ENCOUNTER → 2020-07-09 | Outpatient (CLI) | payer OTHER ==
[2020-07-09 09:41] LABS: BASOPHILS % (AUTO) 0.6 % (0.0-5.0); LYMPHOCYTES % (AUTO) 29.8 % (21.0-51.0); MEAN CORPUSCULAR HEMOGLOBIN 32.4 pg (27.0-33.0); MEAN CORPUSCULAR HGB CONC 33.7 g/dL (32.0-36.0); MEAN CORPUSCULAR VOLUME 96.2 fL (79-99); MONOCYTES % (AUTO) 9.5 % (3.0-13.0); NEUTROPHILS % (AUTO) 56.1 % (40.0-77.0); PLATELET COUNT (AUTO) 85 K/uL (130-400); RED BLOOD CELL COUNT(AUTO) 3.95 MIL/uL (4.00-5.50); RED CELL DISTRIBUTION WIDTH 13.5 % (11.0-15.5); WHITE BLOOD COUNT (AUTO) 3.5 K/uL (4.8-10.8)
[2020-07-09 09:53] LABS: INR 1.06 (0.85-1.15); PROTHROMBIN TIME 11.4 SEC (9.6-11.6)
[2020-07-09 11:39] LABS: ALBUMIN 3.1 g/dL (3.5-5.0); BILIRUBIN,TOTAL 0.9 mg/dL (0.2-1.0); CREATININE 0.7 mg/dL (0.5-1.5); POTASSIUM 4.7 mmol/L (3.5-5.1); TOTAL PROTEIN, SERUM 7.7 g/dL (6.0-8.3)
== END | disposition home or self-care (01) ==
LOC: RAH 09:02
PROVIDERS: ATTEND Internal Medicine Gastroenterology
DX: K80.20 Calculus of gallbladder without cholecystitis without obstruction (principal); K70.31 Alcoholic cirrhosis of liver with ascites; R16.1 Splenomegaly, not elsewhere classified
CPT/HCPCS: 36415; 76700; 80053; 82105; 85025; 85610; 93975

== ENCOUNTER 2020-08-18 17:59 | Observation (INO) | payer OTHER ==
[~2020-08-18] VITALS: Ht 152.4 cm; Wt 62.0 kg
[2020-08-18 18:22] LABS: BASOPHILS % (AUTO) 0.3 % (0.0-5.0); EOSINOPHILS % (AUTO) 2.7 % (0.0-8.0); HEMATOCRIT 35.6 % (36-48); MEAN CORPUSCULAR HEMOGLOBIN 32.7 pg (27.0-33.0); MEAN CORPUSCULAR VOLUME 96.2 fL (79-99); MONOCYTES % (AUTO) 7.3 % (3.0-13.0); NEUTROPHILS % (AUTO) 60.4 % (40.0-77.0); PLATELET COUNT (AUTO) 73 K/uL (130-400); RED CELL DISTRIBUTION WIDTH 14.3 % (11.0-15.5); WHITE BLOOD COUNT (AUTO) 3.3 K/uL (4.8-10.8)
[2020-08-18 18:35] LABS: INR 1.04 (0.85-1.15); PARTIAL THROMBOPLASTIN TIME 28.1 SEC (26.3-35.5); PROTHROMBIN TIME 11.2 SEC (9.6-11.6)
[2020-08-18 18:45] LABS: AMMONIA 23 umol/L (11-32); LIPASE 187 U/L (114-286)
[2020-08-18 19:04] LABS: CREATININE 0.7 mg/dL (0.5-1.5); POTASSIUM 4.5 mmol/L (3.5-5.1)
[2020-08-18 19:09] LABS: ALBUMIN 2.8 g/dL (3.5-5.0); BILIRUBIN,TOTAL 0.8 mg/dL (0.2-1.0); TOTAL PROTEIN, SERUM 6.9 g/dL (6.0-8.3)
[2020-08-18 19:40] LABS: APPEARANCE,URINE Clear (CLEAR); BILIRUBIN,URINE Negative (NEGATIVE); COLOR,URINE Yellow (YELLOW); GLUCOSE, URINE (UA) Negative (NEGATIVE); KETONES,URINE Negative (NEGATIVE); LEUKOCYTE ESTERASE ,URINE Negative (NEGATIVE); NITRATE,URINE Negative (NEGATIVE); OCCULT BLOOD,URINE Negative (NEGATIVE); PROTEIN,URINE Negative (NEGATIVE)
[2020-08-18] MEDS ORDERED: MORPHINE SULFATE 2 MG/ML 1ML SYG IV PRN (20:30)
[2020-08-18] MEDS ORDERED: DiphenhydrAMINE HCL 50 MG/ML VIAL IV PRN (20:30)
[2020-08-18] MEDS ORDERED: MAG HYDROX/AL HYDROX/SIMETH ES 30 ML SUSP UDCUP PO PRN (20:30)
[2020-08-18] MEDS ORDERED: ACETAMINOPHEN 325 MG TAB PO PRN (20:30)
[2020-08-18 20:42] LABS: HEMOGLOBIN A1C 5.4 % (4.0-6.0)
[2020-08-18] MEDS ORDERED: IOHEXOL 350 MG/ML 100ML INFUS..BTL IV ONE (20:43)
[2020-08-18] MEDS: FAMOTIDINE 20MG TAB 20 MG TAB PO SCH (21:00)
[2020-08-18] MEDS: LACTULOSE 20 GM/30 ML UDCUP PO SCH (21:00)
[2020-08-18] MEDS: INSULIN HUMULIN R 100 UNIT/ML 3ML SQ SCH (21:00)
[2020-08-19 04:54] VITALS: BP 94/58
[2020-08-19 05:35] LABS: BASOPHILS % (AUTO) 0.3 % (0.0-5.0); HEMATOCRIT 32.6 % (36-48); LYMPHOCYTES % (AUTO) 31.4 % (21.0-51.0); MEAN CORPUSCULAR HEMOGLOBIN 32.2 pg (27.0-33.0); MEAN CORPUSCULAR HGB CONC 33.1 g/dL (32.0-36.0); MEAN CORPUSCULAR VOLUME 97.3 fL (79-99); MONOCYTES % (AUTO) 10.5 % (3.0-13.0); NEUTROPHILS % (AUTO) 54.5 % (40.0-77.0); PLATELET COUNT (AUTO) 79 K/uL (130-400); RED BLOOD CELL COUNT(AUTO) 3.35 MIL/uL (4.00-5.50); RED CELL DISTRIBUTION WIDTH 14.2 % (11.0-15.5); WHITE BLOOD COUNT (AUTO) 3.3 K/uL (4.8-10.8)
[2020-08-19] MEDS: INSULIN HUMULIN R 100 UNIT/ML 3ML SQ SCH ×4 (06:08→20:44)
[2020-08-19 06:11] LABS: ALBUMIN 2.4 g/dL (3.5-5.0); BILIRUBIN,TOTAL 0.9 mg/dL (0.2-1.0); CREATININE 0.6 mg/dL (0.5-1.5); MAGNESIUM 1.6 mg/dL (1.80-2.40)
[2020-08-19 08:00] VITALS: BP 103/60
[2020-08-19] MEDS: LACTULOSE 20 GM/30 ML UDCUP PO SCH ×3 (09:15→21:14)
[2020-08-19] MEDS: FAMOTIDINE 20MG TAB 20 MG TAB PO SCH ×2 (09:16→21:14)
[2020-08-19] MEDS: FOLIC ACID 1 MG TABLET PO SCH (09:16)
[2020-08-19] MEDS: SPIRONOLACTONE 25 MG TAB PO SCH (09:16)
[2020-08-19] MEDS: FUROSEMIDE 40 MG TABLET PO SCH (09:17)
[2020-08-19] MEDS: THIAMINE HCL 100 MG TABLET PO SCH (09:17)
[2020-08-19 11:00] VITALS: BP 103/61
[2020-08-19] MEDS ORDERED: MAGNESIUM 2GM PREMIX 50ML 50 ML IV PRN (11:00)
--- NOTE | 2020-08-19 13:13 | NUR ---
YAMILA NOTE/IA MET WITH PATIENT IN ROOM. STATES LIVES WITH LIFE PARTNER AND ADULT SON, SEMI INDEPENDENT WITH ADLS, SON IS PROVIDER DAILY, HAS USE OF WHEELCHAIR, WALKER AND NEBULIZER PRN, AND FEEL SAFE TO RETURN HOME ONCE DISCHARGED. Addendum: 08/19/20 at 1315 by DELMIS PAREKH RN CM Amended: Links added.
[2020-08-19 16:00] VITALS: BP 104/60
[2020-08-19 19:15] VITALS: BP 103/64
--- NOTE | 2020-08-19 19:58 | NUR ---
MRI ADVISED DR. SAUNDERS OF MRI BRAIN RESULTS AT APPROX 1103 AM.
[2020-08-19 23:58] VITALS: BP 104/63
[2020-08-20 03:25] VITALS: BP 99/61
[2020-08-20 03:34] LABS: BASOPHILS % (AUTO) 0.9 % (0.0-5.0); EOSINOPHILS % (AUTO) 3.4 % (0.0-8.0); HEMATOCRIT 34.2 % (36-48); LYMPHOCYTES % (AUTO) 30.8 % (21.0-51.0); MEAN CORPUSCULAR HEMOGLOBIN 31.7 pg (27.0-33.0); MEAN CORPUSCULAR HGB CONC 32.7 g/dL (32.0-36.0); MEAN CORPUSCULAR VOLUME 96.9 fL (79-99); MONOCYTES % (AUTO) 11.6 % (3.0-13.0); PLATELET COUNT (AUTO) 71 K/uL (130-400); RED BLOOD CELL COUNT(AUTO) 3.53 MIL/uL (4.00-5.50); RED CELL DISTRIBUTION WIDTH 14.2 % (11.0-15.5); WHITE BLOOD COUNT (AUTO) 3.3 K/uL (4.8-10.8)
[2020-08-20 03:49] LABS: ALBUMIN 2.5 g/dL (3.5-5.0); BILIRUBIN,TOTAL 0.7 mg/dL (0.2-1.0); CREATININE 0.9 mg/dL (0.5-1.5); MAGNESIUM 2.8 mg/dL (1.80-2.40); PHOSPHORUS 3.5 mg/dL (2.5-4.9); POTASSIUM 4.1 mmol/L (3.5-5.1); TOTAL PROTEIN, SERUM 6.4 g/dL (6.0-8.3)
[2020-08-20] MEDS: INSULIN HUMULIN R 100 UNIT/ML 3ML SQ SCH ×2 (07:30→11:30)
[2020-08-20 08:00] VITALS: BP 111/67
[2020-08-20] MEDS: LACTULOSE 20 GM/30 ML UDCUP PO SCH ×2 (08:49→13:36)
[2020-08-20] MEDS: FOLIC ACID 1 MG TABLET PO SCH (08:50)
[2020-08-20] MEDS: SPIRONOLACTONE 25 MG TAB PO SCH (08:50)
[2020-08-20] MEDS: FAMOTIDINE 20MG TAB 20 MG TAB PO SCH (08:50)
[2020-08-20] MEDS: FUROSEMIDE 40 MG TABLET PO SCH (08:50)
[2020-08-20] MEDS: THIAMINE HCL 100 MG TABLET PO SCH (08:50)
[2020-08-20] MEDS ORDERED: AMOXICILLIN/POTASSIUM CLAV 500-125 TABLET PO SCH (12:45)
[2020-08-20 13:19] VITALS: BP 113/68
[2020-08-20] MEDS ORDERED: AMOX-426 PO (15:05)
--- NOTE | 2020-08-20 15:45 | NUR ---
THE PATIENT WAS DISCHARGED AT 1545 ON August. THE PATIENT WAS ADMITTED FOR ALTERED MENTAL STATUS AND CIRRHOSIS. DURING DISCHARGE THE PATIENT WAS EDUCATED ON MEDICATIONS TO CONTINUE AND MEDICATIONS TO STOP TAKING. THE PATIENT HAD A NEW PRESCRIPTION FOR AMOXICCILLIN; THE PATIENT WAS GIVEN INFORMATION REGARDING THE MEDICATION, HOW TO TAKE THE MEDICATION, HOW OFTEN TO TAKE THE MEDICATION, AND THE SIDE EFFECTS THAT COULD OCCUR WITH THE MEDICATION. THE PATIENT WAS ALSO EDUCATED ON THE USES OF LACTULOSE FOR HER CONDITION AND WHY IT IS IMPORTANT TO TAKE IT WHY DEALING WITH CIRRHOSIS. THE IV WAS DISCONTINUED AND INTACT. THE PATIENT UNDERSTOOD ALL INSTRUCTIONS AND HAD NO FURTHER QUESTIONS. THE PATIENT WAS WHEELCHAIRED DOWN BY THE THREAD WEAVER.
== END 2020-08-20 15:45 | disposition home or self-care (01) ==
LOC: EDH 17:59 → EDHIP 20:25 → 3BH 08-19 00:47
PROVIDERS: ADMIT Internal Medicine Critical Care Medicine; ATTEND Internal Medicine Critical Care Medicine
DX: K74.60 Unspecified cirrhosis of liver (principal); Z20.828 Contact with and (suspected) exposure to other viral communicable diseases; K76.6 Portal hypertension; E78.5 Hyperlipidemia, unspecified; H70.90 Unspecified mastoiditis, unspecified ear; E11.9 Type 2 diabetes mellitus without complications; D68.9 Coagulation defect, unspecified; D63.8 Anemia in other chronic diseases classified elsewhere; Z79.899 Other long term (current) drug therapy
CPT/HCPCS: 36415 ×3; 70450; 70496; 70498; 70551; 71045 ×2; 80053 ×3; 81003; 82140 ×3; 82948 ×6; 83036; 83690; 83735 ×2; 84100; 84484; 85025 ×3; 85610; 85730; 87040 ×2; 87426; 93005; 96365; 96366; 99285; G0378 ×43; J3475; Q9967; U0003

== ENCOUNTER 2020-11-19 06:06 | Day surgery (SDC) | payer OTHER ==
[~2020-11-19] VITALS: Ht 147.3 cm; Wt 56.7 kg
[~2020-11-19 06:06] MED LIST changes: +FOLI0.4T6 PO; -FOLI1 PO; +RIFA550T PO; +SERT-438 PO; +SODIUM CHLORIDE 0.9% 1000ML 0 ML IV ONE; -THIA100T91 PO
[2020-11-19] MEDS ORDERED: SODIUM CHLORIDE 0.9% 1000ML 1,000 ML IV ONE (06:19)
[2020-11-19 06:37] VITALS: BP 128/63
[2020-11-19] MEDS ORDERED: ALBU18HF7 IH (07:04)
[2020-11-19] MEDS ORDERED: ALBU0.63 IH (07:04)
[2020-11-19] MEDS ORDERED: PROPOFOL 10 MG/ML 20ML VIAL IV ONE (08:32)
[2020-11-19] MEDS ORDERED: LIDOCAINE HCL 1% 20 ML VIAL ONE (08:32)
[2020-11-19 08:48] VITALS: BP 112/57
[2020-11-19 08:53] VITALS: BP 120/62
[2020-11-19 09:01] VITALS: BP 139/74
[2020-11-19 09:05] VITALS: BP 136/67
[2020-11-19 09:10] VITALS: BP 143/65
== END 2020-11-19 09:30 | disposition home or self-care (01) ==
LOC: ENDO 06:06 → DAH 06:06 → ENDO 09:30
PROVIDERS: ATTEND Internal Medicine Gastroenterology
DX: K74.3 Primary biliary cirrhosis (principal); Z20.822 Contact with and (suspected) exposure to COVID-19; K31.89 Other diseases of stomach and duodenum; I11.9 Hypertensive heart disease without heart failure; I50.9 Heart failure, unspecified; J45.909 Unspecified asthma, uncomplicated; E11.9 Type 2 diabetes mellitus without complications; E78.5 Hyperlipidemia, unspecified; K80.20 Calculus of gallbladder without cholecystitis without obstruction; Z79.899 Other long term (current) drug therapy; Z98.891 History of uterine scar from previous surgery
CPT/HCPCS: 43239; 82948 ×2; 93005; A4215 ×2; A4221; A4222; A4223; A4606; A4620; A4657; A4663; C9803; J2704; J7030; U0003

== ENCOUNTER → 2020-12-27 | Outpatient (CLI) | payer OTHER ==
[~2020-12-27] MED LIST changes: +ALBU0.63 IH; +ALBU18HF7 IH; -SODIUM CHLORIDE 0.9% 1000ML 0 ML IV ONE
[2020-12-27 15:46] LABS: BASOPHILS % (AUTO) 0.6 % (0.0-5.0); EOSINOPHILS % (AUTO) 2.6 % (0.0-8.0); HEMATOCRIT 36.5 % (36-48); LYMPHOCYTES % (AUTO) 24.7 % (21.0-51.0); MEAN CORPUSCULAR HEMOGLOBIN 30.1 pg (27.0-33.0); MEAN CORPUSCULAR HGB CONC 31.5 g/dL (32.0-36.0); MEAN CORPUSCULAR VOLUME 95.5 fL (79-99); MONOCYTES % (AUTO) 12.5 % (3.0-13.0); NEUTROPHILS % (AUTO) 59.6 % (40.0-77.0); PLATELET COUNT (AUTO) 97 K/uL (130-400); RED BLOOD CELL COUNT(AUTO) 3.82 MIL/uL (4.00-5.50); RED CELL DISTRIBUTION WIDTH 14.1 % (11.0-15.5); WHITE BLOOD COUNT (AUTO) 3.4 K/uL (4.8-10.8)
[2020-12-27 16:21] LABS: CREATININE 0.7 mg/dL (0.5-1.5); POTASSIUM 3.9 mmol/L (3.5-5.1); TOTAL PROTEIN, SERUM 7.6 g/dL (6.0-8.3)
[2020-12-27 16:23] LABS: INR 1.14 (0.85-1.15); PARTIAL THROMBOPLASTIN TIME 26.3 SEC (26.3-35.5); PROTHROMBIN TIME 11.7 SEC (9.6-11.6)
== END | disposition home or self-care (01) ==
LOC: LAB 15:15
PROVIDERS: ATTEND Internal Medicine Gastroenterology
DX: K70.31 Alcoholic cirrhosis of liver with ascites (principal); K72.90 Hepatic failure, unspecified without coma
CPT/HCPCS: 36415; 80053; 82105; 85025; 85610; 85730

== ENCOUNTER → 2021-01-07 | Outpatient (CLI) | payer OTHER ==
[2021-01-07 09:50] LABS: EOSINOPHILS % (AUTO) 2.9 % (0.0-8.0); HEMATOCRIT 35.8 % (36-48); LYMPHOCYTES % (AUTO) 25.8 % (21.0-51.0); MEAN CORPUSCULAR HEMOGLOBIN 30.8 pg (27.0-33.0); MEAN CORPUSCULAR HGB CONC 32.7 g/dL (32.0-36.0); MEAN CORPUSCULAR VOLUME 94.2 fL (79-99); MONOCYTES % (AUTO) 7.2 % (3.0-13.0); NEUTROPHILS % (AUTO) 62.8 % (40.0-77.0); PLATELET COUNT (AUTO) 95 K/uL (130-400); RED CELL DISTRIBUTION WIDTH 14.1 % (11.0-15.5); WHITE BLOOD COUNT (AUTO) 3.1 K/uL (4.8-10.8)
== END | disposition home or self-care (01) ==
LOC: RAH 08:29
PROVIDERS: ATTEND Internal Medicine Gastroenterology
DX: K74.3 Primary biliary cirrhosis (principal); D64.9 Anemia, unspecified; K80.20 Calculus of gallbladder without cholecystitis without obstruction; N28.1 Cyst of kidney, acquired
CPT/HCPCS: 36415; 76700; 82728; 83540; 83550; 85025; 93975

== ENCOUNTER → 2021-10-15 | Outpatient (CLI) | payer OTHER | END | disposition home or self-care (01) | LOC: RAH 09:12 | PROVIDERS: ATTEND Family Medicine | DX: K74.3 Primary biliary cirrhosis (principal); K80.20 Calculus of gallbladder without cholecystitis without obstruction | CPT/HCPCS: 76705 ==

== ENCOUNTER 2023-08-22 16:45 | Inpatient (IN) | payer OTHER ==
[~2023-08-22] VITALS: Ht 147.3 cm; Wt 70.4 kg
[~2023-08-22 16:45] MED LIST changes: +SULF1TAB42 PO
[2023-08-22 18:22] LABS: BASOPHILS # (AUTO) 0.01 K/uL (0.00-0.20); BASOPHILS % (AUTO) 0.1 % (0.0-5.0); EOSINOPHILS # (AUTO) 0.01 K/uL (0.00-0.70); EOSINOPHILS % (AUTO) 0.1 % (0.0-8.0); HEMATOCRIT 34.8 % (36-48); IMMATURE GRANULOCYTE ABSOLUTE 0.06 K/uL (0-1); LYMPHOCYTES # (AUTO) 0.9 K/uL (1.0-4.8); LYMPHOCYTES % (AUTO) 10.4 % (21.0-51.0); MEAN CORPUSCULAR HEMOGLOBIN 33.2 pg (27.0-33.0); MEAN CORPUSCULAR HGB CONC 34.2 g/dL (32.0-36.0); MEAN CORPUSCULAR VOLUME 97.2 fL (79-99); MONOCYTES # (AUTO) 0.6 K/uL (0.1-1.0); MONOCYTES % (AUTO) 7.7 % (3.0-13.0); NEUTROPHILS # (AUTO) 6.8 K/uL (1.8-7.7); PLATELET COUNT (AUTO) 142 K/uL (130-400); RED BLOOD CELL COUNT(AUTO) 3.58 MIL/uL (4.00-5.50); RED CELL DISTRIBUTION WIDTH 26.3 % (11.0-15.5); WHITE BLOOD COUNT (AUTO) 8.4 K/uL (4.8-10.8)
[2023-08-22 18:28] LABS: CREATININE 1.8 mg/dL (0.5-1.5); POTASSIUM 4.1 mmol/L (3.5-5.1)
[2023-08-22] MEDS ORDERED: ONDANSETRON 4MG INJ IVP ONE (18:30)
[2023-08-22 18:35] LABS: ALBUMIN 1.8 g/dL (3.5-5.0); BILIRUBIN,TOTAL 15.5 mg/dL (0.2-1.0); TOTAL PROTEIN, SERUM 8.2 g/dL (6.0-8.3)
[2023-08-22] MEDS ORDERED: 0.9%NACL 1000ML 1,000 ML IV SCH (19:30)
[2023-08-22 21:42] LABS: APPEARANCE,URINE CLOUDY (CLEAR); BILIRUBIN,URINE 10 mg/dL (NEGATIVE); COLOR,URINE DARK-YELLOW (YELLOW); GLUCOSE, URINE (UA) NEGATIVE (NEGATIVE); KETONES,URINE 10 mg/dL (NEGATIVE); LEUKOCYTE ESTERASE ,URINE 250 Leu/uL (NEGATIVE); NITRATE,URINE NEGATIVE (NEGATIVE); OCCULT BLOOD,URINE NEGATIVE (NEGATIVE); PROTEIN,URINE NEGATIVE (NEGATIVE); UROBILINOGEN,URINE 12 mg/dL (0.2-1.0)
[2023-08-22 21:45] LABS: ADD UA MICROSCOPIC YES
[2023-08-22 21:47] LABS: BACTERIA,URINE MOD /HPF (None Seen); SQUAMOUS EPITHELIAL CELL,UR MOD /HPF (0-2); UNCLASSIFIED CRYSTAL 9 /HPF (None Seen); WBC CLUMP FEW /HPF (0-1)
[2023-08-23] MEDS ORDERED: CEFTRIAXONE 2GM VIAL IVPB ONE (00:30)
[2023-08-23] MEDS ORDERED: 0.9%NACL 1000ML 1,000 ML IV SCH (01:00)
[2023-08-23] MEDS ORDERED: ACETAMINOPHEN 325 MG TAB PO PRN (01:00)
[2023-08-23] MEDS ORDERED: LABETALOL 20MG SYG IV PRN (01:00)
[2023-08-23] MEDS ORDERED: ACETAMINOPHEN 650 MG SUPPOSITORY RC PRN (01:00)
[2023-08-23] MEDS ORDERED: DOCUSATE SODIUM 100 MG CAP PO PRN (01:00)
[2023-08-23] MEDS ORDERED: PROMETHAZINE HCL 25 MG/ML 1ML AMPULE IM PRN (01:00)
[2023-08-23] MEDS ORDERED: TEMAZEPAM 15 MG CAPSULE PO PRN (01:00)
[2023-08-23] MEDS ORDERED: HYDRALAZINE 20MG/ML VIAL IV PRN (01:00)
[2023-08-23] MEDS ORDERED: LACTULOSE 20 GM/30 ML UDCUP PO PRN (01:00)
[2023-08-23] MEDS ORDERED: CLONIDINE HCL 0.1 MG TABLET PO PRN (01:00)
[2023-08-23] MEDS ORDERED: ONDANSETRON 4MG INJ IVP PRN (01:00)
[2023-08-23] MEDS ORDERED: CEFTRIAXONE 2GM VIAL IVPB SCH (01:30)
[2023-08-23 04:48] LABS: SARS-CoV-2, RNA, NAAT NEGATIVE SARS CoV-2 (NEGATIVE)
[2023-08-23 04:52] LABS: INFLUENZA TYPE A Negative For Type A (NEGATIVE); INFLUENZA TYPE B Negative For Type B (NEGATIVE)
[2023-08-23 07:09] LABS: BASOPHILS # (AUTO) 0.01 K/uL (0.00-0.20); BASOPHILS % (AUTO) 0.1 % (0.0-5.0); EOSINOPHILS # (AUTO) 0.01 K/uL (0.00-0.70); EOSINOPHILS % (AUTO) 0.1 % (0.0-8.0); HEMATOCRIT 31.8 % (36-48); IMMATURE GRANULOCYTE ABSOLUTE 0.07 K/uL (0-1); LYMPHOCYTES # (AUTO) 0.9 K/uL (1.0-4.8); LYMPHOCYTES % (AUTO) 10.6 % (21.0-51.0); MEAN CORPUSCULAR HEMOGLOBIN 32.3 pg (27.0-33.0); MEAN CORPUSCULAR VOLUME 95.2 fL (79-99); MONOCYTES # (AUTO) 0.7 K/uL (0.1-1.0); NEUTROPHILS # (AUTO) 6.6 K/uL (1.8-7.7); NEUTROPHILS % (AUTO) 80.3 % (40.0-77.0); PLATELET COUNT (AUTO) 111 K/uL (130-400); RED BLOOD CELL COUNT(AUTO) 3.34 MIL/uL (4.00-5.50); RED CELL DISTRIBUTION WIDTH 26.7 % (11.0-15.5); WHITE BLOOD COUNT (AUTO) 8.2 K/uL (4.8-10.8)
[2023-08-23] MEDS: INSULIN HUMULIN R 100 UNIT/ML 3ML SQ SCH ×2 (07:30→11:30)
[2023-08-23 08:18] LABS: MAGNESIUM 2.1 mg/dL (1.80-2.40); PHOSPHORUS 3.8 mg/dL (2.5-4.9)
[2023-08-23] MEDS ORDERED: DEXTROSE 50%-WATER 50 ML DISP.SYRIN IV ONE (08:20)
[2023-08-23] MEDS ORDERED: GLUCAGON 1MG KIT 1 MG ML IM PRN (08:30)
[2023-08-23] MEDS ORDERED: DEXTROSE 50%-WATER 50 ML DISP.SYRIN IV PRN (08:30)
[2023-08-23] MEDS: DEXTROSE 5 % AND 0.9 % NACL 1,000 ML IV SCH (08:40)
[2023-08-23 08:43] LABS: INR 1.72 (0.85-1.15); PROTHROMBIN TIME 19.3 SEC (9.6-11.6)
[2023-08-23 08:44] LABS: PARTIAL THROMBOPLASTIN TIME 40.4 SEC (26.3-35.5)
[2023-08-23 08:49] LABS: ALBUMIN 1.6 g/dL (3.5-5.0); BILIRUBIN,TOTAL 13.6 mg/dL (0.2-1.0); CREATININE 1.4 mg/dL (0.5-1.5); POTASSIUM 4.5 mmol/L (3.5-5.1); TOTAL PROTEIN, SERUM 7.3 g/dL (6.0-8.3)
[2023-08-23] MEDS ORDERED: ENOXAPARIN SODIUM 30 MG/0.3 ML SQ SCH (09:00)
[2023-08-23] MEDS: ZOSYN 3.375GM +NS 50ML IV SCH ×2 (09:41→20:57)
[2023-08-23] MEDS: PANTOPRAZOLE 40 MG/VIAL IVP SCH ×2 (09:41→20:57)
[2023-08-23] MEDS ORDERED: SOLU-MEDROL 40MG VIAL IVP SCH (10:30)
[2023-08-23] MEDS: LACTULOSE 20 GM/30 ML UDCUP PO SCH ×2 (14:40→20:57)
[2023-08-23 21:20] VITALS: BP 134/74; PULSE 87; RESP 18
[2023-08-24] VITALS (9 sets, daily range): BP systolic 112–130; BP diastolic 58–69; PULSE 65–90; RESP 16–19; O2SAT 96–97
[2023-08-24 05:08] LABS: HEMATOCRIT 31.4 % (36-48); IMMATURE GRANULOCYTE ABSOLUTE 0.06 K/uL (0-1); LYMPHOCYTES # (AUTO) 0.7 K/uL (1.0-4.8); LYMPHOCYTES % (AUTO) 12.1 % (21.0-51.0); MEAN CORPUSCULAR HEMOGLOBIN 32.4 pg (27.0-33.0); MEAN CORPUSCULAR HGB CONC 32.5 g/dL (32.0-36.0); MEAN CORPUSCULAR VOLUME 99.7 fL (79-99); MONOCYTES # (AUTO) 0.2 K/uL (0.1-1.0); MONOCYTES % (AUTO) 3.6 % (3.0-13.0); NEUTROPHILS # (AUTO) 4.5 K/uL (1.8-7.7); NEUTROPHILS % (AUTO) 83.2 % (40.0-77.0); PLATELET COUNT (AUTO) 80 K/uL (130-400); RED BLOOD CELL COUNT(AUTO) 3.15 MIL/uL (4.00-5.50); RED CELL DISTRIBUTION WIDTH 26.4 % (11.0-15.5); WHITE BLOOD COUNT (AUTO) 5.4 K/uL (4.8-10.8)
[2023-08-24 05:19] LABS: INR 1.71 (0.85-1.15); PROTHROMBIN TIME 19.2 SEC (9.6-11.6)
[2023-08-24 05:20] LABS: PARTIAL THROMBOPLASTIN TIME 38.7 SEC (26.3-35.5)
[2023-08-24 05:23] LABS: CREATININE 1.4 mg/dL (0.5-1.5); POTASSIUM 4.4 mmol/L (3.5-5.1)
[2023-08-24 05:29] LABS: ALBUMIN 1.4 g/dL (3.5-5.0); BILIRUBIN,TOTAL 12.4 mg/dL (0.2-1.0); TOTAL PROTEIN, SERUM 6.7 g/dL (6.0-8.3)
[2023-08-24] MEDS: PANTOPRAZOLE 40 MG/VIAL IVP SCH ×2 (09:34→20:31)
[2023-08-24] MEDS: ZOSYN 3.375GM +NS 50ML IV SCH ×2 (09:34→20:31)
[2023-08-24] MEDS: LACTULOSE 20 GM/30 ML UDCUP PO SCH ×2 (09:35→20:31)
[2023-08-25 03:30] VITALS: BP 107/48; PULSE 70; RESP 16
[2023-08-25 04:06] LABS: EOSINOPHILS # (AUTO) 0.01 K/uL (0.00-0.70); EOSINOPHILS % (AUTO) 0.2 % (0.0-8.0); HEMATOCRIT 29.9 % (36-48); IMMATURE GRANULOCYTE ABSOLUTE 0.04 K/uL (0-1); LYMPHOCYTES # (AUTO) 0.9 K/uL (1.0-4.8); LYMPHOCYTES % (AUTO) 15.4 % (21.0-51.0); MEAN CORPUSCULAR HEMOGLOBIN 32.9 pg (27.0-33.0); MEAN CORPUSCULAR HGB CONC 33.1 g/dL (32.0-36.0); MEAN CORPUSCULAR VOLUME 99.3 fL (79-99); MONOCYTES # (AUTO) 0.5 K/uL (0.1-1.0); NEUTROPHILS # (AUTO) 4.3 K/uL (1.8-7.7); NEUTROPHILS % (AUTO) 74.7 % (40.0-77.0); PLATELET COUNT (AUTO) 62 K/uL (130-400); RED BLOOD CELL COUNT(AUTO) 3.01 MIL/uL (4.00-5.50); RED CELL DISTRIBUTION WIDTH 26.1 % (11.0-15.5); WHITE BLOOD COUNT (AUTO) 5.8 K/uL (4.8-10.8)
[2023-08-25 04:23] LABS: ALBUMIN 1.3 g/dL (3.5-5.0); BILIRUBIN,TOTAL 11.3 mg/dL (0.2-1.0); CREATININE 1.3 mg/dL (0.5-1.5); PHOSPHORUS 2.9 mg/dL (2.5-4.9); POTASSIUM 4.3 mmol/L (3.5-5.1); TOTAL PROTEIN, SERUM 6.3 g/dL (6.0-8.3)
[2023-08-25 04:34] LABS: INR 1.72 (0.85-1.15); PROTHROMBIN TIME 19.3 SEC (9.6-11.6)
[2023-08-25 08:00] VITALS: BP 105/57; PULSE 67; RESP 18
[2023-08-25] MEDS: ZOSYN 3.375GM +NS 50ML IV SCH ×2 (08:56→20:08)
[2023-08-25] MEDS: LACTULOSE 20 GM/30 ML UDCUP PO SCH ×2 (08:56→20:08)
[2023-08-25] MEDS: PANTOPRAZOLE 40 MG/VIAL IVP SCH ×2 (08:56→20:08)
[2023-08-25] MEDS: DEXTROSE 5 % AND 0.9 % NACL 1,000 ML IV SCH ×3 (09:25→14:12)
[2023-08-25 11:00] VITALS: BP 127/52; PULSE 77; RESP 18
[2023-08-25 16:00] VITALS: BP 113/64; PULSE 72; RESP 18
[2023-08-25 20:00] VITALS: BP 118/56; PULSE 79; RESP 18
[2023-08-25 22:46] VITALS: BP 128/61; PULSE 78; RESP 18
[2023-08-26 02:56] VITALS: BP 111/50; PULSE 77; RESP 17
[2023-08-26] MEDS: DEXTROSE 5 % AND 0.9 % NACL 1,000 ML IV SCH (03:40)
[2023-08-26 04:14] LABS: WHITE BLOOD COUNT (AUTO) 6.9 K/uL (4.8-10.8)
[2023-08-26 04:16] LABS: BASOPHILS # (AUTO) 0.01 K/uL (0.00-0.20); BASOPHILS % (AUTO) 0.1 % (0.0-5.0); EOSINOPHILS # (AUTO) 0.01 K/uL (0.00-0.70); EOSINOPHILS % (AUTO) 0.1 % (0.0-8.0); IMMATURE GRANULOCYTE ABSOLUTE 0.07 K/uL (0-1); LYMPHOCYTES # (AUTO) 0.8 K/uL (1.0-4.8); LYMPHOCYTES % (AUTO) 11.9 % (21.0-51.0); MEAN CORPUSCULAR HEMOGLOBIN 33.1 pg (27.0-33.0); MEAN CORPUSCULAR HGB CONC 32.5 g/dL (32.0-36.0); MEAN CORPUSCULAR VOLUME 101.9 fL (79-99); MONOCYTES # (AUTO) 0.7 K/uL (0.1-1.0); MONOCYTES % (AUTO) 10.4 % (3.0-13.0); NEUTROPHILS # (AUTO) 5.2 K/uL (1.8-7.7); NEUTROPHILS % (AUTO) 76.5 % (40.0-77.0); PLATELET COUNT (AUTO) 77 K/uL (130-400); RED BLOOD CELL COUNT(AUTO) 3.14 MIL/uL (4.00-5.50); RED CELL DISTRIBUTION WIDTH 25.2 % (11.0-15.5)
[2023-08-26 04:32] LABS: ALBUMIN 1.3 g/dL (3.5-5.0); BILIRUBIN,TOTAL 11.8 mg/dL (0.2-1.0); CREATININE 1.3 mg/dL (0.5-1.5); MAGNESIUM 1.8 mg/dL (1.80-2.40); PHOSPHORUS 2.2 mg/dL (2.5-4.9); TOTAL PROTEIN, SERUM 6.4 g/dL (6.0-8.3)
[2023-08-26 04:38] LABS: INR 1.66 (0.85-1.15); PROTHROMBIN TIME 18.6 SEC (9.6-11.6)
[2023-08-26 04:39] LABS: PARTIAL THROMBOPLASTIN TIME 40.8 SEC (26.3-35.5)
[2023-08-26 08:00] VITALS: BP 121/74; PULSE 72; RESP 18
[2023-08-26] MEDS: ZOSYN 3.375GM +NS 50ML IV SCH ×2 (08:42→20:00)
[2023-08-26] MEDS: LACTULOSE 20 GM/30 ML UDCUP PO SCH ×2 (08:42→20:00)
[2023-08-26] MEDS: PANTOPRAZOLE 40 MG/VIAL IVP SCH ×2 (08:42→20:00)
[2023-08-26 09:10] VITALS: O2SAT 97
[2023-08-26 12:00] VITALS: BP 109/61; PULSE 83; RESP 18
[2023-08-26 16:00] VITALS: BP 140/65; PULSE 82; RESP 19
[2023-08-26 20:00] VITALS: BP 131/67; PULSE 66; RESP 20
[2023-08-27] VITALS: BP 120/57; PULSE 85; RESP 20
[2023-08-27 04:00] VITALS: BP 118/53; PULSE 75; RESP 18
[2023-08-27 08:00] VITALS: BP 129/75; PULSE 87; RESP 18
[2023-08-27] MEDS: PANTOPRAZOLE 40 MG/VIAL IVP SCH (09:50)
[2023-08-27] MEDS: ZOSYN 3.375GM +NS 50ML IV SCH (09:50)
[2023-08-27] MEDS: LACTULOSE 20 GM/30 ML UDCUP PO SCH (09:50)
[2023-08-27 12:00] VITALS: BP 113/68; PULSE 89; RESP 18
[2023-08-27 16:00] VITALS: BP 116/64; PULSE 76; RESP 16
== END 2023-08-27 18:00 | DRG 871 ==
LOC: EDH 16:45 → OBSVTOIN 08-23 00:41 → EDHIP 08-23 00:41 → UNDOADMOB 08-23 00:59 → 4BH 08-23 21:26 → EDHIP 08-23 21:26
PROVIDERS: ADMIT Internal Medicine Critical Care Medicine; ATTEND Internal Medicine Critical Care Medicine
PROC: 05HC33Z Insertion of Infusion Device into Left Basilic Vein, Percutaneous Approach (ICD-10-PCS; principal; 2023-08-27)
PROC: B54NZZA Ultrasonography of Left Upper Extremity Veins, Guidance (ICD-10-PCS; 2023-08-27)
DX: A41.9 Sepsis, unspecified organism (principal); E43 Unspecified severe protein-calorie malnutrition; J96.01 Acute respiratory failure with hypoxia; E87.1 Hypo-osmolality and hyponatremia; N17.9 Acute kidney failure, unspecified; N30.00 Acute cystitis without hematuria; E87.20 Acidosis, unspecified; J98.11 Atelectasis; R65.20 Severe sepsis without septic shock; E86.0 Dehydration; D63.8 Anemia in other chronic diseases classified elsewhere; E11.22 Type 2 diabetes mellitus with diabetic chronic kidney disease; I12.9 Hypertensive chronic kidney disease with stage 1 through stage 4 chronic kidney disease, or unspecified chronic kidney disease; E11.649 Type 2 diabetes mellitus with hypoglycemia without coma; K74.60 Unspecified cirrhosis of liver; N18.30 Chronic kidney disease, stage 3 unspecified; E78.00 Pure hypercholesterolemia, unspecified; E87.8 Other disorders of electrolyte and fluid balance, not elsewhere classified; K43.9 Ventral hernia without obstruction or gangrene; K72.90 Hepatic failure, unspecified without coma; K80.20 Calculus of gallbladder without cholecystitis without obstruction; Z68.32 Body mass index [BMI] 32.0-32.9, adult; Z79.899 Other long term (current) drug therapy; Z79.84 Long term (current) use of oral hypoglycemic drugs
CPT/HCPCS: 36415; 71045; 74176; 80053; 81001; 82140; 82948; 83605; 83735; 84100; 85025; 85610; 85730; 87077; 87088; 87186; 87635; 87804; C9113; G0378; J0696; J2405; J2543; J2920; J7030; J7070

== ENCOUNTER 2023-09-10 11:36 | Emergency (ER) | payer OTHER ==
[~2023-09-10] VITALS: Ht 147.3 cm; Wt 68.9 kg
[2023-09-10 12:11] LABS: BASOPHILS # (AUTO) 0.01 K/uL (0.00-0.20); BASOPHILS % (AUTO) 0.1 % (0.0-5.0); EOSINOPHILS # (AUTO) 0.01 K/uL (0.00-0.70); EOSINOPHILS % (AUTO) 0.1 % (0.0-8.0); HEMATOCRIT 31.6 % (36-48); IMMATURE GRANULOCYTE ABSOLUTE 0.05 K/uL (0-1); LYMPHOCYTES # (AUTO) 0.5 K/uL (1.0-4.8); LYMPHOCYTES % (AUTO) 5.6 % (21.0-51.0); MEAN CORPUSCULAR HEMOGLOBIN 36.8 pg (27.0-33.0); MEAN CORPUSCULAR HGB CONC 33.9 g/dL (32.0-36.0); MEAN CORPUSCULAR VOLUME 108.6 fL (79-99); MONOCYTES # (AUTO) 0.4 K/uL (0.1-1.0); MONOCYTES % (AUTO) 4.9 % (3.0-13.0); NEUTROPHILS # (AUTO) 7.7 K/uL (1.8-7.7); NEUTROPHILS % (AUTO) 88.7 % (40.0-77.0); PLATELET COUNT (AUTO) 48 K/uL (130-400); RED BLOOD CELL COUNT(AUTO) 2.91 MIL/uL (4.00-5.50); RED CELL DISTRIBUTION WIDTH 25.5 % (11.0-15.5); WHITE BLOOD COUNT (AUTO) 8.7 K/uL (4.8-10.8)
[2023-09-10 12:28] LABS: INR 1.57 (0.85-1.15); PROTHROMBIN TIME 17.7 SEC (9.6-11.6)
[2023-09-10 12:29] LABS: PARTIAL THROMBOPLASTIN TIME 42.3 SEC (26.3-35.5)
[2023-09-10 12:31] LABS: ALBUMIN 1.4 g/dL (3.5-5.0); BILIRUBIN,TOTAL 11.8 mg/dL (0.2-1.0); TOTAL PROTEIN, SERUM 6.8 g/dL (6.0-8.3)
[2023-09-10 12:58] LABS: PLATELET MORPHOLOGY COMMENT MARKED DECREASE
[2023-09-10] MEDS ORDERED: ALBUMIN (HUMAN) 25% 200 ML IV SCH (15:00)
[2023-09-10 15:06] VITALS: BP 96/48; PULSE 76; RESP 20; O2SAT 98
== END 2023-09-10 16:50 | disposition home or self-care (01) ==
LOC: EDH 11:36
DX: R18.8 Other ascites (principal); K74.60 Unspecified cirrhosis of liver; E11.9 Type 2 diabetes mellitus without complications; E78.00 Pure hypercholesterolemia, unspecified; I10 Essential (primary) hypertension
CPT/HCPCS: 49083; 99285; 96365; 71045; 82150; 83735; 80053; 83690; 85025; 85610; 85730; 36415; P9046; C1729